=== PATIENT | male | born 1950 | race Caucasian/White ===

== ENCOUNTER 2025-02-07 08:54 | Outpatient (OUT) | payer OTHER, SELFPAY ==
--- OUTSIDE RECORDS SUMMARY | 2020-12-13 05:45 | XMS_ITS | Continuity of Care Document ---
Author Organization [facility] Address [address] [place] [address] Phone Care Team Providers Care Stable Cleaner Name Role Phone Hilario Morrison Unavailable Unavailable Procedures Procedure Date Moderna COVID Vaccine Admin Dose 2 Moderna COVID-19 Vaccine Moderna COVID Vaccine Admin Dose 1 Moderna COVID-19 Vaccine Advance Directives Directive Yes / No Effective Date File Name No Information Encounters Encounter Description Practice Location Reason(s) For Visit Diagnoses Date Provider Providers Copied on Encounter [facility], [address] [place], [place], [id number], [place] tel:[phone] COVID ECHD No Information Erin Thomas. [address] [place], [place], [id number], [place]. tel:[phone] [facility], [address] [place], [place], [id number], tel:[phone] COVID ECHD No Information Erin Thomas. [address] [place], [place], [id number], [place]. tel:[phone] Family History Family Member Type Diagnosis Age At Onset No Information Immunizations Vaccine Date Status Comments Moderna COVID administered Source: New Im munization Record Moderna COVID administered Source: New Im munization Record Payers Payer name Insurance type Covered green party ID Authoriza tion(s) Medicare PPS MB [id number] Medicare PPS [id number] [place] Medicare Advantage [id number] Social History Type Description Quantity Date Captured Comments Alcohol Use Details Unknown Caffeine Use Details Unknown Tobacco Use Status No Information Smoking Status No Information Sex Male Sexual Orientation Straight or heterosexual Gender Identity Male Chief Complaint And Reason For Visit No Information Reason For Referral Reason For Referral No Information History Of Present Illness Encounter Date Complaint History Of Prese nt Illness No Information Functional Status Date Functional Assessmen t No Information Instructions Date Instruction Additional Infor mation No Information Assessments Type Assessment Date No Information Patient Care Teams Name Effective Dates (start - stop) Status Members No Information
--- OUTSIDE RECORDS SUMMARY | 2025-02-07 08:57 | XMS_ITS | Clinical Summary ---
Author Organization [facility] Address [address] [place] [address] Care Team Providers Care Strategy Specialist Name Role Phone Kolton Patterson MD Primary Care Provider [phone] Allergies Active Allergy Reactions Criticality Noted Date Comments Cats Unknown 04/03/2020 Codeine Unknown 04/03/2020 Lactase Unknown 04/03/2020 Levonorgestrel-Ethinyl Estrad Unknown 2019 Medications potassium chloride (KLOR-CON 10 ORAL) Take 10 mEq by mouth once daily. 2 tablets Active propranolol (INDERAL) 40 mg tablet Take 40 mg by mouth twice daily. Active bumetanide (BUMEX) 2 mg tablet Take 2 mg by mouth once daily. Active escitalopram oxalate (LEXAPRO) 20 mg tablet Take 20 mg by mouth once daily. Active acetaminophen (TYLENOL) 325 mg tablet Take 650 mg by mouth every 6 hours as needed. Active DICLOFENAC SODIUM ORAL Take 75 mg by mouth twice daily. Active Active Problems Problem Noted Date Diagnosed Date Lumbar spinal stenosis 05/01/2020 Poor flexibility of tendon 04/29/2020 Chronic bilateral low back pain with bilateral s ciatica 04/29/2020 Social History Tobacco Use Types Packs/Day Years Used Date Smoking Tobacco: Never Smokeless Tobacco: Never Area Deprivation Index Answer Date Josue rded National Score (1-100), lower number is lower ri sk Not on file 08/22/2020 State Score (1-10), lower number is lower risk N ot on file 08/22/2020 Data from: https://www.neighborhoodatlas.medicine.[facility].edu/. Last address used for calculation Not on file 08/22/2020 Sex and Gender Information Value Date Recorded Sex Assigned at Not on file Legal Sex Male 12:20 PM EST Gender Identity Not on file Sexual Orientation Not on file Last Filed Vital Signs Vital Sign Reading Time Taken Comments Blood Pressure 116/56 05/01/2020 3:13 PM EDT Pulse 70 05/01/2020 3:13 PM EDT Temperature 36.5 C (97.7 F) 05/01/2020 2:15 PM EDT Respiratory Rate 16 05/01/2020 3:13 PM EDT Oxygen Saturation 95% 05/01/2020 3:13 PM EDT Inhaled Oxygen Concentration - - Weight 122.5 kg (270 lb) 05/01/2020 2:15 PM EDT Height - - Body Mass Index - - Plan of Treatment Health Maintenance Due Date Last Done Comments Anxiety Screening 1970 Depression Screening 1970 Hepatitis C Screening 1970 DTaP,Tdap,Td Vaccine (1 - Tdap) 12/17/1971 Lipid Screening 12/17/1987 CT Colonography 1997 Cologuard (FIT-DNA) 1997 Colonoscopy 1997 Colorectal Cancer Screening 1997 Diabetes Screening 1997 Fecal Occult Blood 1997 Sigmoidoscopy 1997 Pneumococcal Vaccine: 50+ (1 of 1 - PCV) 2002 Shingrix Vaccine (1 of 2) 2002 Covid-19 Vaccine (1 - 2023- season) 2024 Advance Directive Discussion 09/13/2024 Influenza Vaccine (Season Ended) 2025 RSV Vaccine (1 - 1-dose 75+ series) 12/17/2027 Insurance [employer] HMO Care Teams Strategy Specialist Relationship Specialty Start Date End Date Kolton Patterson MD PCP - General Internal Medicine 03/08/20
--- OUTSIDE RECORDS SUMMARY | 2025-02-07 08:57 | XMS_ITS | Clinical Summary ---
Author Organization [facility] Address [address] [facility] [place] [address] Care Team Providers Care Informatica Architect Name Role Phone Marco Freire MD Unavailable [phone] Marco Freire MD Primary Care Provider [phone] Elías Coleman DPM Unavailable Apollo Antonio MD Unavailable Carissa Sim MD Unavailable [phone] Allergies Active Allergy Reactions Criticality Noted Date Comments Cat Dander Low 10/26/2023 Other Reaction(s): Sneezing, eyes watering Codeine Rash,Other Low 04/03/2020 Levonorgestrel-Ethinyl Estrad Other Low 04/03/2020 Milk (Cow) GI intolerance Low 10/26/2023 Oxycodone Other Low 02/11/2023 Tilactase Other Low 04/03/2020 Medications fluocinolone (Synalar) 0.01 % external solution Apply 1 application topically Daily as needed for rash or irritation 023 Active cholecalciferol (Vitamin D-3) 125 MCG (5000 UT) capsule 1 capsule 1 (one) time each day at the same time. Active hydroCHLOROthiazide (Microzide) 12.5 MG capsule 1 (one) time each day at the same time. Active diphenhydrAMINE-acetami nophen (Tylenol PM) 25-500 MG per tablet Take 1 tablet by mouth as needed at bedtime for sleep. Active cyanocobalamin (Vitamin B-12) 500 MCG tablet Take 500 mcg by mouth in the morning. Active clotrimazole-betamethas one (Lotrisone) cream Apply 1 application topically Daily as needed Active triamcinolone (Kenalog) 0.1 % creamIndications:Rash and nonspecific skin eruption Apply 1 application topically 2 (two) times a day as needed for rash Avoid face and groin. 30 g 1 024 Active Krill Oil 1000 MG capsuleIndications:Pure hypercholesterolemia (CMS/HCC) Take 1,000 mg by mouth in the morning. 024 Active fluorouracil (Efudex) 5 % creamIndications:Actini c keratosis Apply to directed areas on the scalp twice a day x 14 days. Dispense 30 day supply but only use for 14 days. 40 g 024 Active diclofenac (Voltaren) 75 MG EC tabletIndications:Chron ic bilateral low back pain with bilateral sciatica,Primary osteoarthritis involving multiple joints Take 1 tablet (75 mg) by mouth in the morning and 1 tablet (75 mg) before bedtime. Do not crush, chew, or split. . 180 tablet 3 024 Active escitalopram (Lexapro) 20 MG tabletIndications:MUKUND (generalized anxiety disorder) (CMS/HCC) Take 1 tablet (20 mg) by mouth 1 (one) time each day at the same time 90 tablet 3 025 Active propranolol (Inderal) 60 MG tabletIndications:Essen tial tremor Take 1 tablet (60 mg) by mouth in the morning and 1 tablet (60 mg) before bedtime. 180 tablet 3 025 Active Active Problems Problem Noted Date Diagnosed Date Mixed hyperlipidemia 05/07/2024 BPH (benign prostatic hyperplasia) 10/11/2023 Microhematuria 10/11/2023 Macrocytosis 10/11/2023 Primary osteoarthritis involving multiple joints 10/11/2023 Psoriasis vulgaris 04/02/2023 Prediabetes 10/01/2021 Spinal stenosis in cervical region 03/09/2021 Morbid obesity 03/09/2021 MUKUND (generalized anxiety disorder) 03/05/2021 Essential tremor 03/05/2021 Vitamin D deficiency 03/04/2021 History of kidney stones 02/28/2021 FIDEL on CPAP 02/28/2021 Lumbar spinal stenosis 05/01/2020 Chronic bilateral low back pain with bilateral s ciatica 04/29/2020 Sensorineural hearing loss, bilateral 03/20/2019 History of basal cell cancer 07/09/2017 Resolved Problems Problem Noted Date Diagnosed Date Resolved Date SCC (squamous cell carcinoma), 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 10/11/2023 Encounters Date Type Department Care Team Description 01/26/2025 Orders Only [facility] [address] [place] [address] Unallocated, Noms MD Adwoa 12/05/2024 1:05 PM EDT Office Visit [facility] [address] [place] [address] Carissa Sim MD Other seborrheic dermatitis (Primary Dx); Lentigines; Seborrheic keratosis; Angioma of skin; History of basal cell carcinoma; Actinic keratosis; Seborrheic keratosis, inflamed 12/05/2024 Bamboo flowsheet [facility] [address] [place] [address] Carissa Sim MD 12/05/2024 Travel from Last 3 Months Immunizations Immunization Administration Dates Next Due Influenza, High Dose Seasonal, Preservative Free 09/29/2022,10/06/2021 Influenza, Seasonal, Quadrivalent, Adjuvanted Influenza, Unspecified 09/29/2022,10/06/2021 Influenza, trivalent, adjuvanted 10/30/2024 Pneumococcal Conjugate PCV 20 09/29/2022 RSV, recombinant, protein donohue bunit RSVpreF, adjuvant reconstitu, 120mcg/0.5mL, PF (Arexvy) 08/26/2023 Zoster, Recombinant 11/22/2023,08/26/2023 Family History Medical History Relation Name Comments Heart attack Father Viktor Pittman Heart disease Father Viktor Pittman age 4444 years old Dementia Mother age 10 1 years old Relation Name Status Comments Daughter Alive Father Viktor Pittman Mother Son Alive Social History Tobacco Use Types Packs/Day Years Used Date Smoking Tobacco: Never Passive Smoke Exposure: Never Smokeless Tobacco: Never Tobacco Cessation:Counseling Given: Not Answered Alcohol Use Standard Drinks/Week Comments Never 0 (1 standard drink = 0.6 oz pure alcohol) caffeine inyake: tea,on occation AUDIT-C Answer Date Recorded Q1: How often do you have a drink containing alcohol? Never 02/11/2023 Q2: How many drinks containi ng alcohol do you have on a typical day when you are drinking? Patient does not drink Q3: How often do you have si x or more drinks on one occasion? 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 Not on rodolfo e Last Filed Vital Signs Vital Sign Reading Time Taken Comments Blood Pressure 130/62 10/30/2024 10:38 AM EST Pulse 65 10/30/2024 10:38 AM EST Temperature - - Respiratory Rate - - Oxygen Saturation 95% 10/30/2024 10:38 AM EST Inhaled Oxygen Concentration - - Weight 127 kg (281 lb) 10/30/2024 10:38 AM EST Height 167.6 cm (5' 6 ) 10/30/2024 10:38 AM EST Body Mass Index 45.35 10/30/2024 10:38 AM EST Plan of Treatment Upcoming Encounters Date Type Department Care Team (Late st Contact Info) Description 02/12/2025 11:20 AM EDT Procedure Visit [facility] [address] [place] [address] Elías Coleman DPM [address] [facility] [address] [place] [address] 05/02/2025 10:45 AM EDT Office Visit [facility] [address] [place] [address] 06/07/2025 1:30 PM EDT Office Visit [facility] [address] [place] [address] Carissa Sim MD [address] [place] [address] Health Maintenance Due Date Last Done Comments CT Colonography 1952 FIT-DNA 1952 FIT 1952 FOBT 1950 Sigmoidoscopy 1950 Medicare Annual Wellness (AWV) 10/30/2025 0 10/30/2024, 09/29/2022, 09/29/2022 Colonoscopy 02/25/2031 02/25/2021, 02/26/2020 Colorectal Cancer Screening 02/25/2031 Pneumococcal Vaccine: 65+ Years Completed Influenza Vaccine Completed 10/30/2024, , 09/29/2022, Additional history exists Procedures Procedure Name Priority Date/Time Associated Diagnosis Comments XR ABDOMEN 1 VIEW Routine 01/25/2025 11: 32 AM EDT PSA, TOTAL Routine 01/25/2025 10:26 AM EDT CRYOTHERAPY SKIN LESION Routine 12/05/2024 1:19 PM EDT Seborrheic keratosis, inflamed CRYOTHERAPY SKIN LESION Routine 12/05/2024 1:17 PM EDT Actinic keratosis COLONOSCOPY Routine 02/25/2021 12:00 PM EDT from Last 3 Months or Most Recently Relevant to Health Maintenance Results * XR abdomen 1 view (01/25/2025 11:32 AM EDT) Anatomical Region Laterality Modality Abdomen Radiographic Nelda ging us Apollo Antonio MD IMG XR PROCEDURES Final Result * PSA (01/25/2025 10:26 AM EDT) Blood Venous blood specimen / Unknown us Noms Provider Unallocated LAB BLOOD ORDERABLE S Final Result * Cryotherapy, skin lesion (12/05/2024 1:19 PM EDT) Cairssa Sim MD DERM PROCEDURE ORDERABLES Fin al Result * Cryotherapy, skin lesion (12/05/2024 1:17 PM EDT) Carissa Sim MD DERM PROCEDURE ORDERABLES Fin al Result * Colonoscopy (02/25/2021 12:00 PM EDT) Anatomical Region Laterality Modality Endoscopy 02/25/2021 12:0 0 PM EDT Narrative 03/03/2021 12:00 PM EDT PERFORMED AT [facility] LOCATION:[id number] Rectal Polyp Removed Procedure Note CONVERSION, GENERIC - 01/27/2023 PERFORMED AT [facility] LOCATION:[id number] Rectal Polyp Removed Marco Freire MD ENDOSCOPY PROCEDURE ORDERABLES Final Result from Last 3 Months or Most Recently Relevant to Health Maintenance Insurance [employer] Care Teams Informatica Architect Relationship Specialty Start Date End Date Marco Freire MD [address] [place] [id number] PCP - [facility] 09/13/22 Marco Freire MD [address] [place] [address] PCP - General Internal Medicine 02/11/23 Elías Coleman DPM [address] [facility] [address] [place] [address] Referring Physician Podiatry 04/06/23 Apollo Antonio MD [address] [place] [address] Referring Physician Urology 10/12/23 Carissa iSm MD [address] [facility] [address] [place] [address] Referring Physician Dermatology 10/12/23 [facility] Ophthalmology 10/12/23
--- OUTSIDE RECORDS SUMMARY | 2025-02-07 08:57 | XMS_ITS | Clinical Summary ---
Author Organization [facility] Address [address] [place] [address] Phone Care Team Providers Care Foam Cutting Supervisor Name Role Phone Unavailable Primary Care Provider Unavailabl e Social History Tobacco Use Types Packs/Day Years Used Date Smoking Tobacco: Never Assessed Sex and Gender Information Value Date Recorded Sex Assigned at Not on file Legal Sex Male 1:55 PM EST Gender Identity Not on file Sexual Orientation Not on file Plan of Treatment Not on file
--- OUTSIDE RECORDS SUMMARY | 2025-02-07 08:57 | XMS_ITS | Encounter Summary ---
Author Organization [facility] Address [address] [place] [address] Care Team Providers Care Test Desk Supervisor Name Role Phone Marco Freire MD Unavailable [phone] Marco Freire MD Primary Care Provider Elías Coleman DPM Unavailable Apollo Antonio MD Unavailable Carissa Sim MD Unavailable [phone] Encounter Details Date Type Department Care Team (Late st Contact Info) Description 10/26/2023 Orders Only [facility] [address] [facility] [address] [place] [address] A, Unknown Practice [address] [place], [place] [address] Social History Tobacco Use Types Packs/Day Years Used Date Smoking Tobacco: Never Passive Smoke Exposure: Never Smokeless Tobacco: Never Alcohol Use Standard Drinks/Week Comments Never 0 [...] Date Recorded Patient Health Questionnaire-2 Score 1 10/12/2023 Sex and Gender Information Value Date Recorded Sex Assigned at Male 01/20/2024 3:41 PM EDT Legal Sex Male 6:54 PM EDT Gender Identity Male 01/20/2024 3:41 PM EDT Sexual Orientation Straight 01/20/2024 3: 41 PM EDT 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 Not on rodolfo e documented as of this encounter Plan of Treatment Upcoming Encounters Date Type Department Care Team (Late st Contact Info) Description 02/12/2025 11:20 AM EDT Procedure Visit [facility] [address] [place] [address] Elías Coleman DPM [address] [facility] 5 [place] [address] 05/02/2025 10:45 AM EDT Office Visit [facility] [address] [facility] [address] [place] [address] 06/07/2025 1:30 PM EDT Office Visit [facility] [address] [facility] [address] [place] [address] Carissa Sim MD [address] [facility] [address] [place] [address] documented as of this encounter Procedures Procedure Name Priority Date/Time Associated Diagnosis Comments TRANSTHORACIC ECHO (TTE) COMPLETE Routine 10/26/2023 2:19 PM EST documented in this encounter Results * Transthoracic echo (TTE) complete (10/26/2023 2:19 PM EST) Anatomical Region Laterality Modality Heart Ultrasound us Unknown Practice A CV ECHO PROCEDURES Final Resu lt documented in this encounter Visit Diagnoses Not on filedocumented in this encounter Care Teams Test Desk Supervisor Relationship Specialty Start Date End Date Marco Freire MD [address] [place] [address] PCP - [facility] 09/13/22 Marco Freire MD [address] [place] [phone] PCP - General Internal Medicine 02/11/23 Elías Coleman DPM [address] [facility] 5 [place] [address] Referring Physician Podiatry 04/06/23 Apollo Antonio MD [address] [place] [address] Referring Physician Urology 10/12/23 Carissa Sim MD [address] [place] [address] Referring Physician Dermatology 10/12/23 [facility] Ophthalmology 10/12/23 documented as of this encounter
--- OUTSIDE RECORDS SUMMARY | 2025-02-07 08:57 | XMS_ITS | Encounter Summary ---
Author Organization [facility] Address [address] [facility] [place] [address] Care Team Providers Care Hotel Front Office Manager Name Role Phone Marco Freire MD Unavailable [phone] Marco Freire MD Primary Care Provider Elías Coleman DPM Unavailable Apollo Antonio MD Unavailable Carissa Sim MD Unavailable Encounter Details Date Type Department Care Team (Late st Contact Info) Description 10/10/2024 Orders Only [facility] [address] [facility] [address] [place] [address] Apollo Antonio MD [address] [place] [address] Social History Tobacco Use Types Packs/Day Years [...] EDT Procedure Visit [facility] [address] [place] [address] Elías Coleman DPM [address] [facility] [place] [facility] [place] [address] [place] [address] 05/02/2025 10:45 AM EDT [facility] Visit [facility] [address] [facility] [address] [place] [address] 06/07/2025 1:30 PM EDT Office Visit [facility] [address] [facility] [address] [place] [address] Carissa Sim MD [address] [facility] [address] [place] [address] documented as of this encounter Procedures Procedure Name Priority Date/Time Associated Diagnosis Comments PSA, TOTAL Routine 06/13/2024 10:56 AM EDT documented in this encounter Results * PSA (06/13/2024 10:56 AM EDT) Blood Venous blood specimen / Unknown us Apollo Antonio MD LAB BLOOD ORDERABLES Final R esult documented in this encounter Visit Diagnoses Not on filedocumented in this encounter Care Teams Hotel Front Office Manager Relationship Specialty Start Date End Date Marco Freire MD [address] [place] [address] PCP - [facility]oted 09/13/22 Marco Freire MD [address] [place] [address] PCP - General Internal Medicine 02/11/23 Elías Coleman DPM [address] [facility] [place] [address] [place] [address] Referring Physician Podiatry 04/06/23 Apollo Antonio MD [address] [facility] [place] [address] Referring Physician Urology 10/12/23 Carissa Sim MD [address] [place] [address] Referring Physician Dermatology 10/12/23 [facility] Ophthalmology 10/12/23 documented as of this encounter
--- OUTSIDE RECORDS SUMMARY | 2025-02-07 08:57 | XMS_ITS | Encounter Summary ---
Author Organization [facility] Address [address] [facility] [place] [address] Care Team Providers Care Rear Load Truck Driver Name Role Phone Marco Freire MD Unavailable [phone] Marco Freire MD Primary Care Provider [phone] Elías Coleman DPM Unavailable Apollo Antonio MD Unavailable Carissa Sim MD Unavailable [phone] Encounter Details Date Type Department Care Team (Late st Contact Info) Description 10/27/2023 External Result Encounter [facility] External Department Unsolicited Cele Peace, CATE [address] [facility] [address] [place] [address] Social History Tobacco Use Types Packs/Day Years [...] you are drinking? Patient does not drink 3 Q3: How often do you have si [...] rodolfo e documented as of this encounter Miscellaneous Notes * Result Encounter Note - GENO Eastman - 10/27/2023 11:59 PM EST Please notify that stress test was normal. Let us know if shortness of breath worsening or chest pain occurring. * Result Encounter Note - Marco Freire MD - 10/27/2023 11:59 PM EST Please call and tell him the ECHO and stress test were normal. Let us know if problem is worsening or persisting. documented in this encounter Plan of Treatment Upcoming Encounters Date Type Department Care Team (Late st Contact Info) Description 02/12/2025 11:20 AM EDT Procedure Visit [facility] POD [address] [place] [address] Elías Coleman DPM [address] [facility] [address] [place] [address] 05/02/2025 10:45 AM EDT Office Visit [facility] IM [address] [place] [address] 06/07/2025 1:30 PM EDT Office Visit [facility] DERM [address] [place] [phone] Carissa Sim MD [address] [place] [address] documented as of this encounter Procedures Procedure Name Priority Date/Time Associated Diagnosis Comments STRESS TEST WITH MYOCARDIAL PERFUSION 10/27/2023 3:46 PM EST documented in this encounter Results * Stress test with myocardial perfusion (10/27/2023 3:46 PM EST) Anatomical Region Laterality Modality Heart Other 10/27/2023 3:46 PM EST Impressions 10/27/2023 3:50 PM EST 1. Gated spect Sestamibi study is within normal limits. 2. Left ventricular function was preserved. Impression dictated by: Rashmi Peñaloza M.D.10/27/2023 3:48 PM Dictation Location: [place] [address] Transcribed By: [facility] 10/27/23 1548 Dictated By: Rashmi Peñaloza MD 10/27/23 1546 Signed By: <Electronically signed by Rashmi Peñaloza MD in OV> 10/27/23 1548 Narrative 10/27/2023 3:50 PM EST [facility] Main [address] [address] Nuclear Medicine Report Signed Patient: Marco Pittman MR#: [id number] : 1950 Acct:[id number] Age/Sex: 72 / M ADM Date: 10/26/23 Loc: Room: Type: [facility] Attending Dr: Cele Peace LAP GRINDER-C Copies to: CATE Alexandre MD Ordering Provider: Cele Peace NP Date of Service: 10/26/23 NM/NM lenny perf SPECT rest str: Shortness of breath NUCLEAR MYOCARDIAL PERFUSION DATE OF PROCEDURE: 10/27/2023 PROCEDURE: The patient received a stress dose of Lexiscan and was then injected with 27.1 millicuries of Technetium 99M Sestamibi. For rest images the patient was injected with 27.6 millicuries of Technetium 99M Sestamibi. FINDINGS: The raw cine images were reviewed. The post stress and rest perfusion images were reviewed as well as the computer quantification. There was uniform uptake of the radiotracer with no perfusion defects identified. On the gated portion of the study, there was uniform thickening with an overall ejection fraction calculated at 63%. TID score was within normal limits (1.04). NM/NM lenny perf SPECT rest str Procedure Note Rashmi Peñaloza MD - 10/28/2023 [facility] Main [place] [address] [place] [address] Nuclear Medicine Report Signed Patient: Marco Pittman GMR#: [id number] : 3Acct:[id number] Age/Sex: 72 / MADM Date: 10/26/23 Loc: Room:Type: [facility] Attending Dr: Cele Peace LAP GRINDER-C Copies to: CATE Alexandre MD Ordering Provider: Cele Peace NP Date of Service: 10/26/23 NM/NM lenny perf SPECT rest str: Shortness ofbreath NUCLEAR MYOCARDIAL PERFUSION DATE OF PROCEDURE: 10/27/2023 PROCEDURE: The patient received a stress dose of Lexiscan and was then injected with27.1 millicuries of Technetium 99M Sestamibi. For rest images the patient was injected with 27.6 millicuries ofTechnetium 99M Sestamibi. FINDINGS: The raw cine images were reviewed. The post stress and rest perfusionimages were reviewed as well as the computer quantification. There was uniform uptake of theradiotracer with no perfusion defects identified. On the gated portion of the study, there was uniform thickening with anoverall ejection fraction calculated at 63%. TID score was within normal limits (1.04). NM/NM lenny perf SPECT rest str IMPRESSION: 1. Gated spect Sestamibi study is within normal limits. 2. Left ventricular function was preserved. Impression dictated by: Rashmi Peñaloza M.D.10/27/2023 3:48 PM Dictation Location: [id number] Transcribed By: [facility] 10/27/23 1548 Dictated By: Rashmi Peñaloza MD 10/27/23 1546 Signed By: <Electronically signed by Rashmi Peñaloza MD in OV> 10/27/23 1548 us Cele Peace LAP GRINDER CV STRESS PROCEDURES Final Re sult documented in this encounter Visit Diagnoses Not on filedocumented in this encounter Care Teams Rear Load Truck Driver Relationship Specialty Start Date End Date Marco Freire MD [address] [place] [address] PCP - Devoted 09/13/22 Marco Freire MD [address] [place] [address] PCP - General Internal Medicine 02/11/23 Elías Coleman DPM [address] [facility] [place] [address] Referring Physician Podiatry 04/06/23 Apollo Antonio MD [address] [facility] [place] [address] Referring Physician Urology 10/12/23 Carissa Sim MD [address] [place] [address] Referring Physician Dermatology 10/12/23 [facility] Ophthalmology 10/12/23 documented as of this encounter
--- OUTSIDE RECORDS SUMMARY | 2025-02-07 08:57 | XMS_ITS | Encounter Summary ---
Author Organization [facility] Address [address] [facility] [place] [address] Care Team Providers Care Warranty Manager Name Role Phone Marco Freire MD Unavailable [phone] Marco Freire MD Primary Care Provider Elías Coleman DPM Unavailable Apollo Antonio MD Unavailable Carissa Sim MD Unavailable [phone] Encounter Details Date Type Department Care Team (Late st Contact Info) Description 01/26/2025 Orders Only [facility] IM [address] [facility] [address] [place] [address] Unallocated, Noms Provider, [address] [place], [place] [phone] Social History Tobacco Use Types Packs/Day Years [...] Upcoming Encounters Date Type Department Care Team ([facility] st Contact Info) Description 02/12/2025 11:20 AM EDT Procedure Visit [facility] P[facility] [address] [place] [address] Elías Coleman DPM [address] [facility] [address] [place] [address] 05/02/2025 10:45 AM EDT Office Visit [facility] [address] [facility] [address] [place] [address] 06/07/2025 1:30 PM EDT Office Visit [facility] DERM [address] [facility] [address] [place] [address] Carissa Sim MD [address] [facility] [address] [place] [address] documented as of this encounter Procedures Procedure Name Priority Date/Time Associated Diagnosis Comments XR ABDOMEN 1 VIEW Routine 01/25/2025 11:32 AM EDT PSA, TOTAL Routine 01/25/2025 10:26 AM EDT documented in this encounter Results * XR abdomen 1 view (01/25/2025 11:32 AM EDT) Anatomical Region Laterality Modality Abdomen Radiographic Nelda ging us Apollo Antonio MD IMG XR PROCEDURES Final Result * PSA (01/25/2025 10:26 AM EDT) Blood Venous blood specimen / Unknown us Noms Provider Unallocated LAB BLOOD ORDERABLE S Final Result documented in this encounter Visit Diagnoses Not on filedocumented in this encounter Care Teams Warranty Manager Relationship Specialty Start Date End Date Marco Freire MD [address] [place] [address] PCP - Devoted 09/13/22 Marco Freire MD [address] [place] [address] PCP - General Internal Medicine 02/11/23 Elías Coleman DPM [address] [facility] [address] [place] [address] Referring Physician Podiatry 04/06/23 Apollo Antonio MD [address] [facility] [place] [address] Referring Physician Urology 10/12/23 Carissa Sim MD [address] [place] [address] Referring Physician Dermatology 10/12/23 [facility] Ophthalmology 10/12/23 documented as of this encounter
--- OUTSIDE RECORDS SUMMARY | 2025-02-07 08:57 | XMS_ITS | Encounter Summary ---
Author Organization [facility] Address [address] [facility] [place] [address] Care Team Providers Care Domestic Violence Advocate Name Role Phone Marco Freire MD Unavailable [phone] Marco Freire MD Primary Care Provider Elías Coleman DPM Unavailable Apollo Antonio MD Unavailable [phone] Carissa Sim MD Unavailable Encounter Details Date Type Department Care Team (Late st Contact Info) Description 10/09/2024 Orders Only [facility] IM [address] [facility] [address] [place] [address] Unallocated, Noms Provider, [address] [place], [place] [phone] Social History Tobacco Use Types Packs/Day Years [...] EDT Procedure Visit [facility] POD [address] [place] [address] Elías Coleman DPM [address] [facility] [address] [place] [address] 05/02/2025 10:45 AM EDT Office Visit [facility] IM [address] [facility] [address] [place] [address] 06/07/2025 1:30 PM EDT Office Visit [facility] DERM [address] [facility] [address] [place] [address] Carissa Sim MD [address] [facility] [address] [place] [address] documented as of this encounter Procedures Procedure Name Priority Date/Time Associated Diagnosis Comments DIABETIC RETINOPATHY SCREENING - OU - BOTH EYES Routine 04/24/2024 3:34 PM EDT documented in this encounter Results * Diabetic Retinopathy Screening - OU - Both Eyes (04/24/2024 3:34 PM EDT) Anatomical Region Laterality Modality Head Other us Noms Provider Unallocated MD OPHTH PHOTOGRAPHY F inal Result documented in this encounter Visit Diagnoses Not on filedocumented in this encounter Care Teams Domestic Violence Advocate Relationship Specialty Start Date End Date Marco Freire MD [address] [place] [address] PCP - Devoted 09/13/22 Marco Freire MD [address] [place] [address] PCP - General Internal Medicine 02/11/23 Elías Coleman DPM [address] [facility] [address] [place] [address] Referring Physician Podiatry 04/06/23 Apolol Antonio MD [address] [place] [address] Referring Physician Urology 10/12/23 Carissa Sim MD [address] [place] [address] Referring Physician Dermatology 10/12/23 [facility] Ophthalmology 10/12/23 documented as of this encounter
--- NOTE | 2025-02-07 08:58 | ECG_ITS ---
[facility] Test Date: 2025-02-07 Pat Name: ZAID LUZ Department: Room: - Gender: Male Music Writer: : 1950 Requested By: PEPPER NEWMAN Order Number: [id number] Reading MD: JANICE KIRKLAND M.D. Measurements Intervals [place] Rate: 64 P: 52 LA: 238 QRS: 22 QRSD: 90 T: 35 QT: 402 QTc: 415 Interpretive Statements SINUS RHYTHM WITH FIRST DEGREE AV BLOCK Compared to ECG 05/11/2022 08:41:20 No significant changes Electronically Signed On 02-07-2025 18:04:21 EDT by JANICE KIRKLAND M.D.
--- NOTE | 2025-02-07 09:52 | PM.PRESUREVA ---
History of Present Illness History of Present Illness Chief complaint: Right Kidney Stone Narrative: Patient presents for presurgical testing. Please see HPI from Dr. Antonio dated January 31, 2025. Review of Systems ROS Narrative Please see ROS from Dr. Antonio dated January 31, 2025. Please note patient admits to dyspnea on exertion. [facility] Medical History (Updated 02/07/25 @ 09:51 by Tete Talbert NP) Lumbar spinal stenosis ?M48.061 - Spinal stenosis, lumbar region without neurogenic claudication (ICD-10) Lumbar radiculopathy ?M54.16 - Radiculopathy, lumbar region (ICD-10) Chronic back pain ?M54.9 - Dorsalgia, unspecified (ICD-10) ?G89.29 - Other chronic pain (ICD-10) Cervical spondylosis with myelopathy ?M47.12 - Other spondylosis with myelopathy, cervical region (ICD-10) Anxiety ?F41.9 - Anxiety disorder, unspecified (ICD-10) Neck pain ?M54.2 - Cervicalgia (ICD-10) DDD (degenerative disc disease) Back pain ?M54.9 - Dorsalgia, unspecified (ICD-10) Arthritis ?M19.90 - Unspecified osteoarthritis, unspecified site (ICD-10) Sleep apnea ?G47.30 - Sleep apnea, unspecified (ICD-10) Tremor ?R25.1 - Tremor, unspecified (ICD-10) Kidney stones ?N20.0 - Calculus of kidney (ICD-10) Dyspnea on exertion ?R06.09 - Other forms of dyspnea (ICD-10) S/P extracorporeal shock wave therapy ?Z98.890 - Other specified postprocedural states (ICD-10) Surgical History (Updated 02/07/25 @ 09:35 by Tete Talbert NP) S/P epidural steroid injection ?Z92.241 - Personal history of systemic steroid therapy (ICD-10) History of tonsillectomy ?Z90.89 - Acquired absence of other organs (ICD-10) History of colonoscopy ?Z98.890 - Other specified postprocedural states (ICD-10) S/P ureteral stent placement ?Z96.0 - Presence of urogenital implants (ICD-10) S/P cystoscopy ?Z98.890 - Other specified postprocedural states (ICD-10) History of total hip arthroplasty ?Z96.649 - Presence of unspecified artificial hip joint (ICD-10) Social History (Updated 02/07/25 @ 09:26 by Tete Talbert NP) Within the past year, how often did you have a drink containing alcohol: never Score interpretation: A score less than 4 is consistent with normal alcohol consumption. Smoking status: Never smoker Non-prescribed substance use: denies use Highest level of school completed/degree received: Bachelor's degree Meds Home Medications and Allergies Home Medications ?Medication ?Instructions ?Recorded ?Confirmed ?Type cholecalciferol (vitamin D3) 50 6,000 unit PO DAILY 02/07/25 02/07/25 History mcg (2,000 unit) capsule diclofenac sodium 75 mg 75 mg PO Q12H 02/07/25 02/07/25 History tablet,delayed release escitalopram oxalate 20 mg tablet 20 mg PO DAILY 02/07/25 02/07/25 History hydrochlorothiazide 12.5 mg capsule 12.5 mg PO DAILY 02/07/25 02/07/25 History omega 8-uik-nhs-fish oil 300 1 cap PO DAILY 02/07/25 02/07/25 History mg-1,000 mg capsule (Fish Oil) pregabalin 25 mg capsule (Lyrica) 25 mg PO DAILY PRN back pain 02/07/25 02/07/25 History propranolol 60 mg tablet 60 mg PO Q12H tremor 02/07/25 02/07/25 History tizanidine 4 mg capsule 4 mg PO BID PRN muscle spasticity 02/07/25 02/07/25 History vitamin B complex 1 tab PO DAILY 02/07/25 02/07/25 History Allergies Allergy/AdvReac Type Severity Reaction Status Date / Time cat dander Allergy Unknown Verified 02/07/25 09:22 codeine Allergy Dizziness Verified 02/07/25 09:22 Milk Containing Products Allergy Unknown Verified 02/07/25 09:22 (Dairy) Exam Narrative Exam Narrative: Constitutional: Awake, alert, comfortable, well-appearing, nontoxic, interactive, vital signs as charted Head: Normocephalic, atraumatic Neck: Supple, normal appearance, normal range of motion, no meningeal signs, no lymphadenopathy Respiratory: No respiratory distress, breath sounds clear Cardiovascular: Regular rate and rhythm, strong and regular heart tones Abdomen: Nontender, normal bowel sounds, soft, no CVA tenderness Musculoskeletal: Ambulates with an antalgic gait using a cane, no swelling or edema Skin: No rashes or induration, no lesions, only visible skin inspected Neuro: Mild right upper extremity tremor noted, normal sensation Psychiatric: Oriented ?3, normal affect Assessment and Plan Assessment and Plan (1) Kidney stones: Plan Cystoscopy, right retrograde, right ureteroscopy, holmium laser, possible right stent placement scheduled with Dr. Antonio February 15, 2025.
[2025-02-07 10:03] LABS: Basophils Absolute Auto 0.1 10^3/uL (0.0-0.1); Eosinophils Absolute Auto 0.2 10^3/uL (0.0-0.7); Eosinophils Percent Auto 3.2 % (0.9-7.0); Hematocrit 41.3 % (42.0-54.0); Hemoglobin 14.3 g/dL (14.0-18.0); Immature Granulocytes Abs Auto 0.02 10^3/uL (0.00-0.03); Immature Granulocytes Pct Auto 0.3 % (0.0-0.5); Lymphocytes Absolute Auto 1.2 10^3/uL (1.2-3.8); Lymphocytes Percent Auto 17.8 % (20.5-60.0); Mean Corpuscular HGB Conc 34.6 g/dL (29.9-35.2); Mean Corpuscular Hemoglobin 32.4 pg (25.9-34.0); Mean Corpuscular Volume 93.7 fL (80.0-94.0); Mean Platelet Volume 9.5 fL (9.5-13.5); Monocytes Absolute Auto 0.5 10^3/uL (0.3-0.8); Monocytes Percent Auto 7.6 % (1.7-12.0); Neutrophils Absolute Auto 4.9 10^3/uL (1.4-6.5); Neutrophils Percent Auto 70.1 % (43.0-75.0); Platelet Count 181 10^3/uL (150-450); Red Blood Count 4.41 10^6/uL (4.70-6.10); Red Cell Distribution Width 12.3 % (11.0-15.0)
[2025-02-07 10:15] LABS: Partial Thromboplastin Time 27.9 sec (22.3-36.2)
[2025-02-07 10:17] LABS: Anion Gap 12.2; BUN Creatinine Ratio 22.2; Carbon Dioxide 27.8 mmol/L (21.0-32.0); Chloride 104 mmol/L (98-107); Estimated GFR (African America >60 (>=60 mL/min/1.73m^2); Estimated GFR (Non-African Ame >60 (>=60 mL/min/1.73m^2); Glucose 116 mg/dL (74-106); INR 1.09; Prothrombin Time 11.5 sec (9.0-11.6); Sodium 140 mmol/L (136-145)
== END 2025-02-07 08:55 | disposition home or self-care (01) ==
LOC: PST 08:54
PROVIDERS: Family Provider Internal Medicine; PCP Internal Medicine; Visit Provider Urology
DX: Z01.810 Encounter for preprocedural cardiovascular examination (principal); Z01.812 Encounter for preprocedural laboratory examination; Z01.818 Encounter for other preprocedural examination; N20.0 Calculus of kidney
CPT/HCPCS: 80048; 85025; 85610; 85730; 93005; G0463

== ENCOUNTER 2025-02-15 07:37 | Day surgery (SDC) | payer OTHER, SELFPAY ==
--- OUTSIDE RECORDS SUMMARY | 2020-12-13 05:45 | XMS_ITS | Continuity of Care Document ---
Author Organization [facility] Address [address] [place] [address] Phone Care Team Providers Care Volunteer Services Director Name Role Phone Hilario Morrison Unavailable Unavailable Procedures Procedure Date Moderna COVID Vaccine Admin Dose 2 Moderna COVID-19 Vaccine Moderna COVID Vaccine Admin Dose 1 Moderna COVID-19 Vaccine Advance Directives Directive Yes / No Effective Date File Name No Information Encounters Encounter Description Practice Location Reason(s) For Visit Diagnoses Date Provider Providers Copied on Encounter [facility], [address], [place], [id number], [place] tel:[phone] COVID ECHD No Information Erin Thomas. [address], [place], [id number], [place]. tel:[phone] [facility], [address], [place], [id number], tel:[phone] COVID ECHD No Information Erin Thomas. [address], [place], [id number], [place]. tel:[phone] Family History Family Member Type Diagnosis Age At Onset No Information Immunizations Vaccine Date Status Comments Moderna COVID administered Source: New Im munization Record Moderna COVID administered Source: New Im munization Record Payers Payer name Insurance type Covered libertarian ID Authoriza tion(s) Medicare PPS MB [id number] Medicare PPS [id number] [place] Medicare Advantage [id number] Social History Type Description Quantity Date Captured [...]
[2025-02-07 09:46] VITALS: BP 117/72; PULSE 74; TEMP 36.3; O2SAT 98; BMI 46.3
--- OUTSIDE RECORDS SUMMARY | 2025-02-12 11:20 | XMS_ITS | Encounter Summary ---
Author Organization [facility] Address [address] [facility] [place] [address] Care Team Providers Care Piping Manager Name Role Phone Marco Freire MD Unavailable [phone] Marco Freire MD Primary Care Provider Elías Coleman DPM Unavailable Apollo Antonio MD Unavailable [phone] Carissa Sim MD Unavailable [phone] Reason for Visit * Reason Comments Toenail Care Non dm nail care Encounter Details Date Type Department Care Team (Latest Contact Info) Description 02/12/2025 11:20 AM EDT Procedure Visit [facility] P[facility] [address] [place] [address] Elías Cloeman DPM [address] [address] Pain due to onychomycosis of toenails of both feet (Primary Dx) Social History Tobacco Use Types Packs/Day Years Used Date Smoking Tobacco: Never Passive Smoke Exposure: Never Smokeless Tobacco: Never Tobacco Cessation:Counseling Given: Yes Alcohol Use Standard Drinks/Week Comments Never 0 [...] rodolfo e documented as of this encounter Last Filed Vital Signs Vital Sign Reading Time Taken Comments Blood Pressure - - Pulse - - Temperature - - Respiratory Rate 18 02/12/2025 11:17 AM EDT Oxygen Saturation - - Inhaled Oxygen Concentration - - Weight 127 kg (281 lb) 02/12/2025 11:17 AM EDT Height 167.6 cm (5' 6 ) 02/12/2025 11:17 AM EDT Body Mass Index 45.35 02/12/2025 11:17 AM EDT documented in this encounter Progress Notes * Elías Coleman DPM - 02/12/2025 11:20 AM EDT Patient: Marco Pittman : 1950 PCP: Marco Freire MD SUBJECTIVE This is a 74 y.o. male that presents today with a CC of elongated, thick nails. Pt states nails have been elongated and thick for many years and cause pain with ambulation in shoegear. Pt has tried previous treatment with minimal relief. Pt presents today for nail care and treatment. Patient has hx of tinea pedis in the past. Allergies: Allergies Allergen Reactions Cat Dander Other Reaction(s): Sneezing, eyes watering Codeine Rash and Other Levonorgestrel-Ethinyl Estrad Other Milk (Cow) GI intolerance Oxycodone Other Tilactase Other Past Medical History: Past Medical History: Diagnosis Date Actinic keratosis Arthritis Basal cell carcinoma Benign skin lesion of multiple sites Broken nose Essential tremor MUKUND (generalized anxiety disorder) (CMS/HCC) History of basal cell carcinoma (BCC) History of kidney stones Kidney stones Lumbar spinal stenosis Morbid obesity (CMS/HCC) OM (onychomycosis) FIDEL on CPAP Prediabetes 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), 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 Sensorineural hearing loss, bilateral Squamous cell skin cancer Stenosis of cervical spine Tinea Tremor Visual impairment with corrective lenses Vitamin D deficiency Medications: Current Outpatient Medications: cholecalciferol (Vitamin D-3) 125 MCG (5000 UT) capsule, 1 capsule 1 (one) time each day at the same time., Disp: , Rfl: clotrimazole-betamethasone (Lotrisone) cream, Apply 1 application topically Daily as needed, Disp: , Rfl: cyanocobalamin (Vitamin B-12) 500 MCG tablet, Take 500 mcg by mouth in the morning., Disp: , Rfl: diclofenac (Voltaren) 75 MG EC tablet, Take 1 tablet (75 mg) by mouth in the morning and 1 tablet (75 mg) before bedtime. Do not crush, chew, or split. ., Disp: 180 tablet, Rfl: 3 diphenhydrAMINE-acetaminophen (Tylenol PM) 25-500 MG per tablet, Take 1 tablet by mouth as needed at bedtime for sleep., Disp: , Rfl: escitalopram (Lexapro) 20 MG tablet, Take 1 tablet (20 mg) by mouth 1 (one) time each day at the same time, Disp: 90 tablet, Rfl: 3 fluocinolone (Synalar) 0.01 % external solution, Apply 1 application topically Daily as needed for rash or irritation, Disp: , Rfl: fluorouracil (Efudex) 5 % cream, Apply to directed areas on the scalp twice a day x 14 days. Dispense 30 day supply but only use for 14 days., Disp: 40 g, Rfl: 0 hydroCHLOROthiazide (Microzide) 12.5 MG capsule, 1 (one) time each day at the same time., Disp: , Rfl: Krill Oil 1000 MG capsule, Take 1,000 mg by mouth in the morning., Disp: , Rfl: propranolol (Inderal) 60 MG tablet, Take 1 tablet (60 mg) by mouth in the morning and 1 tablet (60 mg) before bedtime., Disp: 180 tablet, Rfl: 3 triamcinolone (Kenalog) 0.1 % cream, Apply 1 application topically 2 (two) times a day as needed for rash Avoid face and groin., Disp: 30 g, Rfl: 1 Social History: Social History Socioeconomic History Marital status: Spouse name: Samantha Number of children: 3 Years of education: Not on file Highest education level: Not on file Occupational History 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 Tobacco Use Smoking status: Never Passive exposure: Never Smokeless tobacco: Never Vaping Use Vaping status: Unknown Substance and Sexual Activity Alcohol use: Never Comment: caffeine inyake: tea,on occation Drug use: Never Sexual activity: Not Currently Partners: Female, Decline to Answer control/protection: Abstinence Other Topics Concern Not on file Social History Narrative Not on file Social Drivers of Health Financial Resource Strain: Not on file Food Insecurity: Not on file Transportation Needs: Not on file Physical Activity: Not on file Stress: Not on file Social Connections: Not on file Intimate Partner Violence: Not on file Housing Stability: Not on file ROS: General: denies fever, chills, fatigue, malaise OBJECTIVE LE EXAM: DERM: Elongated thick yellow crumbly nails digits 1 through 10. Positive hair growth b/l feet. Negative peeling skin noted into the right hallux with negative dry peeling skin and skin to the right 4th interdigital space VASC: Positive palpable pedal pulses bilaterally NEURO: Gross sensation intact to bilateral feet ORTHO: Positive pain on palpation to nails 1 through 10 ASSESSMENT 1. Pain due to onychomycosis of toenails of both feet PLAN Discussed proper foot care with patient today. Debride nails in length and thickness digits 1 through 10 Patient encouraged to use powders to his feet daily. Elías Coleman DPM documented in this encounter Plan of Treatment Upcoming Encounters Date Type Department Care Team (Late st Contact Info) Description 05/02/2025 10:45 AM EDT Office Visit [facility] [address] [place] [address] 06/07/2025 1:30 PM EDT Office Visit [facility] DERM [address] [facility] [address] [place] [address] Carissa Sim MD [address] [facility] [address] [place] [address] documented as of this encounter Visit Diagnoses Diagnosis Pain due to onychomycosis of toenails of both feet- Primary documented in this encounter Care Teams Piping Manager Relationship Specialty Start Date End Date Marco Freire MD [address] [facility] [address] [place] [address] PCP - Devoted 09/13/22 Marco Freire MD [address] [place] [address] PCP - General Internal Medicine 02/11/23 Elías Coleman DPM [address] [facility] [address] [place] [address] Referring Physician Podiatry 04/06/23 Apollo Antonio MD [address] [place] [address] Referring Physician Urology 10/12/23 Carissa Sim MD [address] [facility] [address] [place] [address] Referring Physician Dermatology 10/12/23 [facility] Ophthalmology 10/12/23 documented as of this encounter
[2025-02-15] VITALS (13 sets, daily range): BP systolic 129–151; BP diastolic 59–79; PULSE 63–72; TEMP 36.3–36.6; O2SAT 84–96; BMI 44.9
--- OUTSIDE RECORDS SUMMARY | 2025-02-15 07:39 | XMS_ITS | Clinical Summary ---
Author Organization [facility] Address [address] [facility] [place] [address] Care Team Providers Care Siding Mechanic Name Role Phone Zaid Freire MD Unavailable [phone] Zaid Freire MD Primary Care Provider Elías Coleman DPM Unavailable [phone] Apollo Newman MD Unavailable [phone] Carissa Sim MD Unavailable [phone] Allergies Active Allergy Reactions Criticality Noted [...] Encounters Date Type Department Care Team Description 02/12/2025 11:20 AM EDT Procedure Visit [facility] [address] [place] [address] Elías Coleman, DPMarcelino Pain due to onychomycosis of toenails of both feet (Primary Dx) 02/12/2025 Bamboo flowsheet [facility] [address] [place] [address] Elías Coleman DPM 02/07/2025 Clinisync Result Encounter [facility]OM[facility] External Department Unsolicited Provider, Generic External Data 02/07/2025 Clinisync Result Encounter [facility] External Department Unsolicited Provider, Generic External Data 01/26/2025 Orders Only [facility] [address] [place] [phone] Unallocated, Noms MD Adwoa 12/05/2024 1:05 PM EDT Office Visit [facility] DERM [address] [place] [address] Carissa Sim MD Other seborrheic dermatitis (Primary Dx); Lentigines; Seborrheic keratosis; Angioma of skin; History of basal cell carcinoma; Actinic keratosis; Seborrheic keratosis, inflamed 12/05/2024 Bamboo flowsheet [facility] [address] [place] [address] Carissa Sim MD 12/05/2024 Travel from Last 3 Months Immunizations Immunization Administration Dates Next Due Influenza, High Dose Seasonal, Preservative Free 09/29/2022,10/06/2021 Influenza, Seasonal, Quadrivalent, Adjuvanted Influenza, Unspecified 09/29/2022,10/06/2021 Influenza, trivalent, adjuvanted 10/30/2024 Pneumococcal Conjugate PCV 20 09/29/2022 RSV, recombinant, protein donohue bunit RSVpreF, adjuvant reconstitu, 120mcg/0.5mL, PF (Arexvy) 08/26/2023 Zoster, Recombinant 11/22/2023,08/26/2023 Family History Medical History Relation Name Comments Heart attack Father Janice Pittman Heart disease Father Janice Pittman age 4444 years old Dementia Mother age 10 1 years old Relation Name Status Comments Daughter Alive Father Janice Pittman Mother Son Alive Social History Tobacco [...] AM EST Temperature - - Respiratory Rate 18 02/12/2025 11:17 AM EDT Oxygen Saturation 95% 10/30/2024 10:38 AM EST Inhaled Oxygen Concentration - - Weight 127 kg (281 lb) 02/12/2025 11:17 AM EDT Height 167.6 cm (5' 6 ) 02/12/2025 11:17 AM EDT Body Mass Index 45.35 02/12/2025 11:17 AM EDT Plan of Treatment Upcoming Encounters Date Type Department Care Team (Late st Contact Info) Description 05/02/2025 10:45 AM EDT Office Visit [facility] [address] [place] [address] 06/07/2025 1:30 PM EDT Office Visit [facility] [address] [place] [address] Carissa Sim MD [address] [place] [address] Health Maintenance Due Date Last Done Comments CT Colonography 1950 FIT-DNA 1950 FIT 1950 FOBT 1950 Sigmoidoscopy 1950 Medicare Annual Wellness (AWV) 10/30/2025 0 10/30/2024, 09/29/2022, 09/29/2022 Colonoscopy 02/25/2031 02/25/2021, 02/26/2020 Colorectal Cancer Screening 02/25/2031 Pneumococcal Vaccine: 65+ Years Completed Influenza Vaccine Completed 10/30/2024, , 09/29/2022, Additional history exists Procedures Procedure Name Priority Date/Time Associated Diagnosis Comments ALL BASIC METABOLIC PANEL Routine 02/07/2025 9:50 AM EDT [facility] PROTHROMBIN TIME INR W/O COUM Routine 02/07/2025 9:50 AM EDT [facility] APTT Routine 02/07/2025 9:50 AM EDT ALL CBC WITH AUTO DIFF Routine 02/07/2025 9:50 AM EDT ECG 12-LEAD 02/07/2025 9:47 AM EDT XR ABDOMEN 1 VIEW Routine 01/25/2025 11: 32 AM EDT PSA, TOTAL Routine 01/25/2025 10:26 AM EDT CRYOTHERAPY SKIN LESION Routine 12/05/2024 1:19 PM EDT Seborrheic keratosis, inflamed CRYOTHERAPY SKIN LESION Routine 12/05/2024 1:17 PM EDT Actinic keratosis COLONOSCOPY Routine 02/25/2021 12:00 PM EDT from Last 3 Months or Most Recently Relevant to Health Maintenance Results * [facility] PROTHROMBIN TIME INR W/O COUM (02/07/2025 9:50 AM EDT) PROTHROMBIN TIME 11.5 9.0 - 11.6 sec TBH TB INR 1.09 TBH Comment: DESIRED INR: 2.0-3.0 CONDITIONS NOT LISTED BELOW 2.5-3.5 FOR PROSTHETIC HEART VALVE REPLACEMENT 2.5-3.5 RECURRENT THROMBOSIS 02/07/2025 9:50 AM EDT 02/07/2025 9:56 AM EDT Narrative [facility]IN[facility] - 02/07/2025 10:17 AM EDT us Generic External Data Provider CLIN[facility]NC F inal Result Performing Organization Address [facility] de Phone Number [facility] * [facility] APTT (02/07/2025 9:50 AM EDT) PARTIAL THROMBOPLASTIN TIME 27.9 22.3 - 36.2 sec TB 02/07/2025 9:50 AM EDT 02/07/2025 9:56 AM EDT Narrative CLINIS[facility]NC - 02/07/2025 10:17 AM EDT Generic External Data Provider CLIN[facility]NC F inal Result [facility] * (ABNORMAL) ALL CBC WITH AUTO DIFF (02/07/2025 9:50 AM EDT) [facility] TB WBC 7.0 4.0 - 11.0 10 3/uL TBH TBH RBC 4.41(L) 4.70 - 6.10 10 6/uL TBH TBH HGB 14.3 14.0 - 18.0 g/dL TBH TBH HCT 41.3(L) 42.0 - 54.0 % TBH TBH MCV 93.7 80.0 - 94.0 fL TBH TBH MCH 32.4 25.9 - 34.0 pg TBH TBH MCHC 34.6 29.9 - 35.2 g/dL TBH TBH RDW 12.3 11.0 - 15.0 % TBH TBH PLT 181 150 - 450 10 3/uL TBH TBH MPV 9.5 9.5 - 13.5 fL TBH NEUTROPHILS PERCENT AUTO 70.1 43.0 - 75.0 % TBH LYMPHOCYTES PERCENT AUTO 17.8(L) 20.5 - 60.0 % TBH MONOCYTES PERCENT AUTO 7.6 1.7 - 12.0 % TBH TBH EO % 3.2 0.9 - 7.0 % TBH BASOPHILS PERCENT AUTO 1.0 0.2 - 2.0 % TBH IMMATURE GRANULOCYTES PCT AUTO 0.3 0.0 - 0.5 % TBH NEUTROPHILS ABSOLUTE AUTO 4.9 1.4 - 6.5 10 3/uL TBH LYMPHOCYTES ABSOLUTE AUTO 1.2 1.2 - 3.8 10 3/uL TBH MONOCYTES ABSOLUTE AUTO 0.5 0.3 - 0.8 10 3/uL TBH TBH EO # 0.2 0.0 - 0.7 10 3/uL TBH BASOPHILS ABSOLUTE AUTO 0.1 0.0 - 0.1 10 3/uL TBH IMMATURE GRANULOCYTES ABS AUTO 0.02 0.00 - 0.03 10 3/uL TBH 02/07/2025 9:50 AM EDT 02/07/2025 9:56 AM EDT Narrative CLINISYNC - 02/07/2025 10:09 AM EDT us Generic External Data Provider CLINISYNC F inal Result Performing Organization Address [facility] Co de Phone Number CLINISYNC TB * (ABNORMAL) ALL BASIC METABOLIC PANEL (02/07/2025 9:50 AM EDT) SODIUM 140 136 - 145 mmol/L TBH POTASSIUM 4.0 3.5 - 5.1 mmol/L TBH CHLORIDE 104 98 - 107 mmol/L TBH CARBON DIOXIDE 27.8 21.0 - 32.0 mmol/L TBH ANION GAP 12.2 TBH GLUCOSE 116(H) 74 - 106 mg/dL TBH BLOOD UREA NITROGEN 22.0(H) 7.0 - 18.0 mg/dL TBH CREATININE 0.99 0.70 - 1.30 mg/dL TBH TBH EGFR-AF [place] >60 >=60 mL/min/1.7 3m 2 TBH TBH EGFR-NON AF [place] >60 >=60 mL/min/1.7 3m 2 TBH BUN CREATININE RATIO 22.2 TBH CALCIUM 9.0 8.5 - 10.1 mg/dL TBH 02/07/2025 9:50 AM EDT 02/07/2025 9:56 AM EDT Narrative CLINISYSC - 02/07/2025 11:00 AM EDT Generic External Data Provider CLINISYNC F inal Result Performing Organization Address [facility] Co de Phone Number CLIN[facility]YNC TB * ECG 12-LEAD (02/07/2025 9:47 AM EDT) Anatomical Region Laterality Modality Other 02/07/2025 9:47 AM EDT Narrative 02/07/2025 6:04 [place] [address] Electrocardiograph Report Signed Patient: ZAID PITTMAN MR#: [id number] : 1950 Acct:[id number] Age/Sex: 74 / M ADM Date: 02/07/25 Loc: PST Attending Dr: Apollo Newman M.D. Ordering Physician: Apollo Newman M.D. 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 Measurements Intervals [place] Rate: 64 P: 52 NC: 238 QRS: 22 QRSD: 90 T: 35 QT: 402 QTc: 415 Interpretive Statements SINUS RHYTHM WITH FIRST DEGREE AV BLOCK Compared to ECG 05/11/2022 08:41:20 No significant changes Electronically Signed On 02-07-2025 18:04:21 EDT by JANICE KIRKLAND M.D. Dictated By: JANICE KIRKLAND Signed By: 02/07/25 1804 DD/ 0947 TD/TT: Cadd Instructor: Procedure Note Radiology, Radiologist, MD - 02/07/2025 [place] [address] Electrocardiograph Report Signed Patient: ZAID PITTMAN GMR#: [id number] : 1950cct:[id number] Age/Sex: 74 / MADM Date: 02/07/25 Loc: [facility] Attending Dr: Apollo Newman M.D. Ordering Physician: Apollo Newman M.D. 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 Measurements Intervals [place] Rate: 64 P: 52 NC: 238 QRS: 22 QRSD: 90 T: 35 QT: 402 QTc: 415 Interpretive Statements SINUS RHYTHM WITH FIRST DEGREE AV BLOCK Compared to ECG 05/11/2022 08:41:20 No significant changes Electronically Signed On 02-07-2025 18:04:21 EDT by JANICE KIRKLAND M.D. Dictated By: JANICE KIRKLAND Signed By:02/07/25 1804 DD/ 0947 TD/TT: Cadd Instructor: us Generic External Data Provider [facility] IMAGING Final Result * XR abdomen 1 view (01/25/2025 11:32 AM EDT) Anatomical Region Laterality Modality Abdomen Radiographic Nelda ging us Apollo Newman MD IMG XR PROCEDURES Final Result * PSA (01/25/2025 10:26 AM EDT) Blood Venous blood specimen / Unknown us Noms Provider Unallocated LAB BLOOD ORDERABLE S Final Result * Cryotherapy, skin lesion (12/05/2024 1:19 PM EDT) Carissa Sim MD DERM PROCEDURE ORDERABLES Fin al Result * Cryotherapy, skin lesion (12/05/2024 1:17 PM EDT) Carissa Sim MD DERM PROCEDURE ORDERABLES Fin al Result * Colonoscopy (02/25/2021 12:00 PM EDT) Anatomical Region Laterality Modality Endoscopy 02/25/2021 12:0 0 PM EDT Narrative 03/03/2021 12:00 PM EDT PERFORMED AT [facility] LOCATION:[id number] Rectal Polyp Removed Procedure Note CONVERSION, GENERIC - 01/27/2023 PERFORMED AT [facility] LOCATION:[id number] Rectal Polyp Removed Zaid Freire MD ENDOSCOPY PROCEDURE ORDERABLES Final Result from Last 3 Months or Most Recently Relevant to Health Maintenance Insurance [employer] Care Teams Siding Mechanic Relationship Specialty Start Date End Date Zaid Freire MD [address] [place] [address] PCP - Devoted 09/13/22 Zaid Freire MD [address] [place] [address] PCP - General Internal Medicine 02/11/23 Elías Coleman DPM [address] [facility] [address] [place] [address] Referring Physician Podiatry 04/06/23 Apollo Newman MD [address] [place] [address] Referring Physician Urology 10/12/23 Carissa Sim MD [address] [place] [address] Referring Physician Dermatology 10/12/[address] [facility] Ophthalmology 10/12/23
--- OUTSIDE RECORDS SUMMARY | 2025-02-15 07:39 | XMS_ITS | Encounter Summary ---
Author Organization [facility] Address [address] [facility] [place] [address] Care Team Providers Care Coil Spring Assembler Name Role Phone Zaid Freire MD Unavailable [phone] Zaid Freire MD Primary Care Provider [phone] Elías Coleman DPM Unavailable [phone] Apollo Newman MD Unavailable [phone] Carissa Sim MD Unavailable [phone] Encounter Details Date Type Department Care Team (Late st Contact Info) Description 02/07/2025 Clinisync Result Encounter [facility] External Department Unsolicited Provider, Generic External Data Social History Tobacco Use Types Packs/Day Years [...] 05/02/2025 10:45 AM EDT Office Visit [facility] [address] [place] [address] 06/07/2025 1:30 PM EDT Office Visit [facility] [address] [place] [address] Carissa Sim MD [address] [place] [address] documented as of this encounter Procedures Procedure Name Priority Date/Time Associated Diagnosis Comments ECG 12-LEAD 02/07/2025 9:47 AM EDT documented in this encounter Results * ECG 12-LEAD (02/07/2025 9:47 AM EDT) Anatomical Region Laterality Modality Other 02/07/2025 9:47 AM EDT Narrative 02/07/2025 6:04 PM EDT The [address] [address] Electrocardiograph Report Signed Patient: ZAID PITTMAN MR#: [id number] : 1950 Acct:[id number] Age/Sex: 74 / M ADM Date: 02/07/25 Loc: PST Attending Dr: Apollo Newman M.D. Ordering Physician: Apollo Newman M.D. Date of Service: 02/07/25 Procedure(s): ECG 12 lead Accession Number(s): [id number] cc: [facility] Test Date: 2025-02-07 Pat Name: ZAID PITTMAN Department: Room: - Gender: Male Director Transition: : 1950 Requested By: APOLLO NEWMAN Order Number: [id number] Reading MD: JANICE KIRKLAND M.D. Measurements Intervals [place] Rate: 64 P: 52 MT: 238 QRS: 22 QRSD: 90 T: 35 QT: 402 QTc: 415 Interpretive Statements SINUS RHYTHM WITH FIRST DEGREE AV BLOCK Compared to ECG 05/11/2022 08:41:20 No significant changes Electronically Signed On 02-07-2025 18:04:21 EDT by JANICE KIRKLAND M.D. Dictated By: JANICE KIRKLAND Signed By: 02/07/25 1804 DD/ 0947 TD/TT: Hay Chopper: Procedure Note Radiology, Radiologist, MD - 02/07/2025 [place] [address] Electrocardiograph Report Signed Patient: ZAID PITTMAN GMR#: [id number] : 1950cct:[id number] Age/Sex: 74 / MADM Date: 02/07/25 Loc: [facility] Attending Dr: Apollo Newman M.D. Ordering Physician: Apollo Newman M.D. Date of Service: 02/07/25 Procedure(s): ECG 12 lead Accession Number(s): [id number] cc: [facility] Test Date: 2025-02-07 Pat Name: ZAID PITTMAN Department: Room: - Gender: Male Director Transition: : 1950 Requested By: APOLLO NEWMAN Order Number: [id number] Reading MD: JANICE KIRKLAND M.D. Measurements Intervals [place] Rate: 64 P: 52 MT: 238 QRS: 22 QRSD: 90 T: 35 QT: 402 QTc: 415 Interpretive Statements SINUS RHYTHM WITH FIRST DEGREE AV BLOCK Compared to ECG 05/11/2022 08:41:20 No significant changes Electronically Signed On 02-07-2025 18:04:21 EDT by JANICE KIRKLAND M.D. Dictated By: JANICE KIRKLAND Signed By:02/07/25 1804 DD/ 0947 TD/TT: Hay Chopper: us Generic External Data Provider [facility] IMAGING Final Result documented in this encounter Visit Diagnoses Not on filedocumented in this encounter Care Teams Coil Spring Assembler Relationship Specialty Start Date End Date Zaid Freire MD [address] [place] [address] PCP - Devoted 09/13/22 Zaid Freire MD [address] [place] [address] PCP - General Internal Medicine 02/11/23 Elías Coleman DPM [address] [facility] 5 [place] [address] Referring Physician Podiatry 04/06/23 Apollo Newman MD [address] [place] [address] Referring Physician Urology 10/12/23 Carissa Sim MD [address] [place] [address] Referring Physician Dermatology 10/12/23 [facility] Ophthalmology 10/12/23 documented as of this encounter
--- OUTSIDE RECORDS SUMMARY | 2025-02-15 07:39 | XMS_ITS | Encounter Summary ---
Author Organization [facility] Address [address] [facility] [place] [address] Care Team Providers Care Roller Skate Assembler Name Role Phone Marco Freire MD Unavailable [phone] Marco Freire MD Primary Care Provider Elías Coleman DPM Unavailable [phone] Apollo Antonio MD Unavailable [phone] Carissa Sim MD Unavailable [phone] Encounter Details Date Type Department Care Team (Late st Contact Info) Description 10/27/2023 External Result Encounter [facility] External Department Unsolicited Cele Peace, CATE [address] [facility] [address] [place] [address] Social History Tobacco Use Types Packs/Day Years [...] 10:45 AM EDT Office Visit [facility] [address] [place] [address] 06/07/2025 1:30 PM EDT Office Visit [facility] [address] [place] [address] Carissa Sim MD [address] [place] [address] documented as of this encounter Procedures Procedure [...] Rashmi Peñaloza M.D.10/27/2023 3:48 PM Dictation Location: [place] [address] Transcribed By: [facility] 10/27/23 1548 Dictated By: Rashmi Peñaloza MD 10/27/23 1546 Signed By: <Electronically signed by Rashmi Peñaloza MD in OV> 10/27/23 1548 Narrative 10/27/2023 3:50 PM EST [facility] [place] [address] Nuclear Medicine Report Signed Patient: Marco Pittman MR#: [id number] : 1950 Acct:[id number] Age/Sex: 72 / M ADM Date: 10/26/23 Loc: Room: Type: [facility] Attending Dr: Cele Peace MOVIE MACHINE OPERATOR-C Copies to: CATE Alexandre MD Ordering Provider: [...] Procedure Note Rashmi Peñaloza MD - 10/28/[address] [facility] Main [place] [address] [place] [address] Nuclear Medicine Report Signed Patient: Marco Pittman GMR#: [id number] : 3Acct:[id number] Age/Sex: 72 / MADM Date: 10/26/23 Loc: Room:Type: [facility] Attending Dr: Cele Peace MOVIE MACHINE OPERATOR-C Copies to: CATE Alexandre MD Ordering Provider: [...] Rashmi Peñaloza M.D.10/27/2023 3:48 PM Dictation Location: [place] [address] Transcribed By: DEANA 10/27/23 5280 Dictated By: Rashmi Peñaloza MD 10/27/23 4830 Signed By: <Electronically signed by Rashmi Peñaloza MD in OV> 10/27/23 154 us Cele Peace NP CV STRESS PROCEDURES Final Re sult documented in this encounter Visit Diagnoses Not on filedocumented in this encounter Care Teams Roller Skate Assembler Relationship Specialty Start Date End Date Marco Freire MD [address] [facility] [address] [place] [address] PCP - Devoted 09/13/22 Marco Freire MD [address] [place] [address] PCP - General Internal Medicine 02/11/23 Elías Coleman DPM [address] [facility] 5 [place] [address] Referring Physician Podiatry 04/06/23 Apollo Antonio MD [address] [place] [address] Referring Physician Urology 10/12/23 Carissa Sim MD [address] [facility] [address] [place] [address] Referring Physician Dermatology 10/12/23 [facility] Ophthalmology 10/12/23 documented as of this encounter
--- OUTSIDE RECORDS SUMMARY | 2025-02-15 07:39 | XMS_ITS | Encounter Summary ---
Author Organization [facility] Address [address] [facility] [[email or web address]] [place] [address] Care Team Providers Care Dean Of Men Name Role Phone Marco Freire MD Unavailable [phone] Marco Freire MD Primary Care Provider Elías Coleman DPM Unavailable Apollo Antonio MD Unavailable Carissa Sim MD Unavailable [phone] Encounter Details Date Type Department Care Team (Late st Contact Info) Description 10/26/2023 Orders Only [facility] [address] [facility] [address] [place] [address] A, Unknown Practice [address] [place], [place] [phone] Social History Tobacco Use Types Packs/Day Years [...] IM [address] [place] [address] 06/07/2025 1:30 PM EDT Office Visit [facility] [address] [place] [address] Carissa Sim MD [address] [place] [address] documented as of this encounter Procedures Procedure [...] on filedocumented in this encounter Care Teams Dean Of Men Relationship Specialty Start Date End Date Marco Freire MD [address] [place] [address] PCP - Devoted 09/13/22 Marco Freire MD [address] [place] [address] PCP - General Internal Medicine 02/11/23 Elías Coleman DPM [address] [facility] 5 [place] [address] Referring Physician Podiatry 04/06/23 Apollo Antonio MD [address] [place] [address] Referring Physician Urology 10/12/23 Carissa Sim MD [address] [facility] [address] [place] [address] Referring Physician Dermatology 10/12/23 [facility] Ophthalmology 10/12/23 documented as of this encounter
--- OUTSIDE RECORDS SUMMARY | 2025-02-15 07:39 | XMS_ITS | Encounter Summary ---
Author Organization [facility] Address [address] [facility] [place] [address] Care Team Providers Care Telephone Recorder Name Role Phone Marco Freire MD Unavailable [phone] Marco Freire MD Primary Care Provider Elías Coleman DPM Unavailable Apollo Antonio MD Unavailable [phone] Carissa Sim MD Unavailable Encounter Details Date Type Department Care Team (Late st Contact Info) Description 10/10/2024 Orders Only [facility] [address] [facility] [address] [place] [address] Apollo Antonio MD [address] [place] [address] Social History Tobacco Use Types [...] IM [address] [place] [address] 06/07/2025 1:30 PM EDT Office Visit [facility] [address] [place] [address] Carissa Sim MD [address] [place] [address] documented as of this encounter Procedures Procedure Name Priority Date/Time Associated Diagnosis Comments PSA, TOTAL Routine 06/13/2024 10:56 AM EDT documented in this encounter Results * PSA (06/13/2024 10:56 AM EDT) Blood Venous blood specimen / Unknown us Apollo Antonio MD LAB BLOOD ORDERABLES Final R esult documented in this encounter Visit Diagnoses Not on filedocumented in this encounter Care Teams Telephone Recorder Relationship Specialty Start Date End Date Marco Freire MD [address] [place] [address] PCP - Devoted 09/13/22 Marco Freire MD [address] [place] [address] PCP - General Internal Medicine 02/11/23 Elías Coleman DPM [address] [facility] [address] [place] [address] Referring Physician Podiatry 04/06/23 Apollo Antonio MD [address] [facility] [place] [address] Referring Physician Urology 10/12/23 Carissa Sim MD [address] [place] [address] Referring Physician Dermatology 10/12/23 [facility] Ophthalmology 10/12/23 documented as of this encounter
--- OUTSIDE RECORDS SUMMARY | 2025-02-15 07:39 | XMS_ITS | Encounter Summary ---
Author Organization [facility] Address [address] [facility] [place] [address] Care Team Providers Care Motorized Squad Sergeant Name Role Phone Marco Freire MD Unavailable [phone] Marco Freire MD Primary Care Provider Elías Coleman DPM Unavailable [phone] Apollo Antonio MD Unavailable [phone] Carissa Sim MD Unavailable [phone] Encounter Details Date Type Department Care [...] 05/02/2025 10:45 AM EDT Office Visit [facility] [address] [place] [address] 06/07/2025 1:30 PM EDT Office Visit [facility] [address] [place] [address] Carissa Sim MD [address] [place] [address] documented as of this encounter Procedures Procedure Name Priority Date/Time Associated Diagnosis Comments SRMCOH PROTHROMBIN TIME INR W/O COUM Routine 02/07/2025 9:50 AM EDT [facility] APTT Routine 02/07/2025 9:50 AM EDT ALL CBC WITH AUTO DIFF Routine 02/07/2025 9:50 AM EDT ALL BASIC METABOLIC PANEL Routine 02/07/2025 9:50 AM EDT documented in this encounter Results * (ABNORMAL) ALL BASIC METABOLIC PANEL (02/07/2025 [...] 0.70 - 1.30 mg/dL TBH TBH EGFR-AF [facility] >60 >=60 mL/min/1.7 3m 2 TBH TBH EGFR-NON AF [facility] >60 >=60 mL/min/1.7 3m 2 TBH BUN CREATININE RATIO 22.2 TBH CALCIUM 9.0 8.5 - 10.1 mg/dL TBH 02/07/2025 9:50 AM EDT 02/07/2025 9:56 AM EDT Narrative CLINISYNC - 02/07/2025 11:00 AM EDT Generic External Data Provider CLINISYNC F inal Result Performing Organization Address City/[facility]/ZIP Co de Phone Number MARIANNECOUNT INCLUDES [facility] * [facility]/O COUM (02/07/2025 9:50 AM EDT) PROTHROMBIN TIME 11.5 9.0 - 11.6 sec TB TBH INR 1.09 TBH Comment: DESIRED INR: 2.0-3.0 CONDITIONS NOT LISTED BELOW 2.5-3.5 FOR PROSTHETIC HEART VALVE REPLACEMENT 2.5-3.5 RECURRENT THROMBOSIS 02/07/2025 9:50 AM EDT 02/07/2025 9:56 AM EDT Narrative CLINISYNC - 02/07/2025 10:17 AM EDT Generic External Data Provider CLINISYNC F inal Result [facility] * [facility] APTT (02/07/2025 9:50 AM EDT) PARTIAL THROMBOPLASTIN TIME 27.9 22.3 - 36.2 sec TB 02/07/2025 9:50 AM EDT 02/07/2025 9:56 AM EDT Narrative CLINISYNC - 02/07/2025 10:17 AM EDT us Generic External Data Provider CLINCARINNC F inal Result [facility] * (ABNORMAL) ALL CBC WITH AUTO DIFF (02/07/2025 9:50 AM EDT) [facility] TB WBC 7.0 4.0 - 11.0 10 [...] External Data Provider CLINISYNC F inal Result [facility] documented in this encounter Visit Diagnoses Not on filedocumented in this encounter Care Teams Motorized Squad Sergeant Relationship Specialty Start Date End Date Marco Freire MD [address] [place] [address] PCP - Devoted 09/13/22 Marco Freire MD [address] [place] [address] PCP - General Internal Medicine 02/11/23 Elías Coleman DPM [address] [facility] 5 [place] [address] Referring Physician Podiatry 04/06/23 Apollo Antonio MD [address] [place] [address] Referring Physician Urology 10/12/23 Carissa Sim MD [address] [place] [address] Referring Physician Dermatology 10/12/23 [facility] Ophthalmology 10/12/23 documented as of this encounter
--- OUTSIDE RECORDS SUMMARY | 2025-02-15 07:39 | XMS_ITS | Encounter Summary ---
Author Organization [facility] Address [address] [facility] [place] [address] Care Team Providers Care Manager Hair Name Role Phone Marco Freire MD Unavailable [phone] Marco Freire MD Primary Care Provider Elías Coleman DPM Unavailable Apollo Antonio MD Unavailable Carissa Sim MD Unavailable Encounter Details Date Type Department Care Team (Late st Contact Info) Description 10/09/2024 Orders Only [facility] [address] [facility] [address] [place] [address] Unallocated, Noms Provider, [address] [place], [place] [id number] Social History Tobacco Use Types Packs/Day Years [...] IM [address] [place] [address] 06/07/2025 1:30 PM EDT Office Visit [facility] [address] [place] [address] Carissa Sim MD [address] [place] [address] documented as of this encounter Procedures Procedure Name Priority Date/Time Associated Diagnosis Comments DIABETIC RETINOPATHY SCREENING - OU - BOTH EYES Routine 04/24/2024 3:34 PM EDT documented in this encounter Results * Diabetic Retinopathy Screening - OU - Both Eyes (04/24/2024 3:34 PM EDT) Anatomical Region Laterality Modality Head Other us Noms Provider Unallocated OPHTH PHOTOGRAPHY F inal Result documented in this encounter Visit Diagnoses Not on filedocumented in this encounter Care Teams Manager Hair Relationship Specialty Start Date End Date Marco Freire MD [address] [place] [address] PCP - Devoted 09/13/22 Marco Freire MD [address] [place] [address] PCP - General Internal Medicine 02/11/23 Elías Coleman DPM [address] [facility] [place] [address] Referring Physician Podiatry 04/06/23 Apollo Antonio MD [address] [facility] [place] [address] Referring Physician Urology 10/12/23 Carissa Sim MD [address] [place] [address] Referring Physician Dermatology 10/12/23 [facility] Ophthalmology 10/12/23 documented as of this encounter
--- OUTSIDE RECORDS SUMMARY | 2025-02-15 07:39 | XMS_ITS | Encounter Summary ---
Author Organization [facility] Address [address] [facility] [place] [address] Care Team Providers Care Farm Field Manager Name Role Phone Marco Freire MD Unavailable [phone] Marco Freire MD Primary Care Provider Elías Coleman DPM Unavailable Apollo Antonio MD Unavailable [phone] Carissa Sim MD Unavailable Encounter Details Date Type Department Care Team (Late st Contact Info) Description 01/26/2025 Orders Only [facility] [address] [place] [address] Unallocated, Noms Provider, [address] [place], [place] [phone] Social History Tobacco Use Types Packs/Day Years [...] IM [address] [place] [address] 06/07/2025 1:30 PM EDT Office Visit [facility] [address] [place] [address] Carissa Sim MD [address] [place] [address] documented as of this encounter Procedures Procedure [...] on filedocumented in this encounter Care Teams Farm Field Manager Relationship Specialty Start Date End Date Marco Freire MD [address] [place] [address] PCP - Devoted 09/13/22 Marco Freire MD [address] [place] [address] PCP - General Internal Medicine 02/11/23 Elías Coleman DPM [address] [facility] 5 [place] [address] Referring Physician Podiatry 04/06/23 Apollo Antonio MD [address] [place] [address] Referring Physician Urology 10/12/23 Carissa Sim MD [address] [facility] [address] [place] [address] Referring Physician Dermatology 10/12/23 [facility] Ophthalmology 10/12/23 documented as of this encounter
--- OUTSIDE RECORDS SUMMARY | 2025-02-15 07:39 | XMS_ITS | Encounter Summary ---
Author Organization [facility] Address [address] [facility] [place] [address] Care Team Providers Care Mechanical Development Engineer Name Role Phone Marco Freire MD Unavailable [phone] Marco Freire MD Primary Care Provider Elías Coleman DPM Unavailable Apollo Antonio MD Unavailable [phone] Carissa Sim MD Unavailable [phone] Encounter Details Date Type Department Care Team (Late st Contact Info) Description 10/26/2023 External Result Encounter [facility] External Department Unsolicited Cele Peace, CATE [address] [facility] [address] [place] [address] Social History Tobacco Use Types Packs/Day Years [...] IM [address] [place] [address] 06/07/2025 1:30 PM EDT Office Visit [facility] [address] [place] [address] Carissa Sim MD [address] [place] [address] documented as of this encounter Procedures Procedure Name Priority Date/Time Associated Diagnosis Comments CONGENITAL TRANSTHORACIC ECHO (TTE) COMPLETE 10/26/2023 8:40 AM EST documented in this encounter Results * Congenital transthoracic echo (TTE) complete (10/26/2023 8:40 AM EST) Anatomical Region Laterality Modality Heart Ultrasound 10/26/2023 8:40 AM EST Narrative 10/26/2023 12:06 PM EST [facility] Main [address] [address] Echocardiogram Signed Patient: Marco Pittman MR#: [id number] : 1950 Acct:[id number] Age/Sex: 72 / M ADM Date: 10/26/23 Loc: Room: Type: [facility] Attending Dr: Cele Peace SHOTGUN SHELL LOADING MACHINE OPERATOR-C Ordering Provider: Cele Peace NP Date of Service: 10/26/23/ [facility] echo transthoracic: SOB. Copies to: MD Cele Miller NP Weight: 286 lb Performed By: Lucita Bernstein JONO BSA: 2.3 m2 BP: 118/60 mmHg HR: 77 Reason For Study: SOB. History: FIDEL. Family history: Father at 44 years old from [place]. Interpretation Summary Ejection Fraction = 55-60%. The left ventricular wall motion is normal. The left ventricular size and thickness are normal. A variety of Doppler measurements indicate normal left ventricular diastolic function. No significant valvular abnormalities. Compared to prior study, there is no significant change. Procedure/Quality: A two-dimensional transthoracic echocardiogram with color flow, Doppler and injection of contrast agent Definity was performed. The study was technically fair in quality. Left Ventricle: The left ventricular size and thickness are normal. Ejection Fraction = 55-60%. A variety of Doppler measurements indicate normal left ventricular diastolic function. The left ventricular wall motion is normal. Left Atrium: The left atrium appears normal in size. Right Atrium: The right atrium appears normal in size. Right Ventricle: The right ventricle is normal in size and function. Aortic Valve: The aortic valve is trileaflet. The aortic valve is normal in structure. No hemodynamically significant valvular aortic stenosis. No significant aortic regurgitation. Mitral Valve: The mitral valve is normal in structure. No significant mitral valve stenosis. There is no mitral regurgitation noted. Tricuspid Valve: The tricuspid valve is normal in structure. No tricuspid regurgitation. Pulmonic Valve: The pulmonic valve is not well visualized. No significant pulmonic regurgitation. Arteries: The aortic root is normal size. Pericardium/Pleura: No pericardial effusion seen. There is no pleural effusion. IVC/Hepatic Veins: The inferior vena cava was not visualized during the exam. Measurements with Normals IVSd: 1.3 cm (0.7-1.1 cm)LVIDd: 5.1 cm (3.7-5.4 cm) LVPWd: 1.1 cm (0.7-1.1 cm)LVIDs: 3.7 cm (2.3-3.6 cm) LA dimension: 4.3 cm (2.3-4.0 cm)Ao root diam: 3.3 cm(2.0-3.6 cm) asc Aorta Diam: 3.2 cm(2.1-3.4cm) Doppler with Normals LV V1 max: 89.7 cm/sec (0.7-1.7m/s)MV E max hawk: 77.6 cm/sec(0.8-1.3m/s) MV A max hawk: 96.0 cm/sec(0.0-0.0m/s) MV E/A: 0.81 (<1.5) MMode/2D Measurements Calculations TAPSE: 2.6 cm FS: 26.9 % Ao root area: LVOT diam: 2.0 cm RV S Hawk: EDV(Teich): 8.8 cm2 LVOT area: 3.1 cm2 11.9 cm/sec 122.3 ml ESV(Teich): 58.4 ml EF(Teich): 52.2 % __ LVLd ap4: 9.1 cm SV(MOD-sp4): LAV(MOD-sp4): LA A2 area: 16.3 cm2 EDV(MOD-sp4): 119.9 ml 44.4 ml 182.0 ml LAV(MOD-sp2): LA A4 area: 18.9 cm2 LVLs ap4: 7.0 cm 41.7 ml LA length (vol): ESV(MOD-sp4): 6.0 cm 62.1 ml LA vol: 43.7 ml EF(MOD-sp4): 65.9 % LA vol index: 18.8 ml/m2 Doppler Measurements Calculations MV dec time: MV max PG: E/E' lat: 7.2 MV dec slope: 0.24 sec 63.0 mmHg E/E' med: 11.9 322.9 cm/sec2 __ Ao V2 max: LV V1 max PG: MR max hawk: 116.7 cm/sec 3.2 mmHg 396.8 cm/sec Ao max PG: LV V1 mean PG: MR max P.5 mmHg 2.2 mmHg 63.0 mmHg Ao mean PG: LV V1 mean: 3.6 mmHg 72.0 cm/sec Ao V2 mean: LV V1 VTI: 16.3 cm 90.7 cm/sec Ao V2 VTI: 21.1 cm JUDITH(I,D): 2.4 cm2 JUDITH(V,D): 2.3 cm2 Transcribed By: ANN Performed At: 10/26/23 0840 Signed By: Viktor Horton MD 10/26/23 1205 Procedure Note Shaun Horton MD - 10/26/2023 [facility] Main [place] [address] [place] [address] Echocardiogram Signed Patient: Marco Pittman GMR#: [id number] : 1950cct:[id number] Age/Sex: 72 / MADM Date: 10/26/23 Loc: Room:Type: [facility] Attending Dr: Cele Peace SHOTGUN SHELL LOADING MACHINE OPERATOR-C Ordering Provider: Cele Peace NP Date of Service: 10/26/23/ [facility] echo transthoracic: SOB. Copies to: MD Cele Miller NP Weight: 286 lb Performed By: Lucita Bernstein RDCS BSA: 2.3 m2 BP: 118/60 mmHg HR: 77 Reason For Study: SOB. History: FIDEL. Family history: Father at 44 years old from [place]. Interpretation Summary Ejection Fraction = 55-60%. The left ventricular wall motion is normal. The left ventricular size and thickness are normal. A variety of Doppler measurements indicate normal left ventriculardiastolic function. No significant valvular abnormalities. Compared to prior study, there is no significant change. Procedure/Quality: A two-dimensional transthoracic echocardiogram withcolor flow, Doppler and injection of contrast agent Definity was performed. The study was technically fair in quality. Left Ventricle: The left ventricular size and thickness are normal.Ejection Fraction = 55-60%. A variety of Doppler measurements indicate normal left ventricular diastolic function. The left ventricular wall motion isnormal. Left Atrium: The left atrium appears normal in size. Right Atrium: The right atrium appears normal in size. Right Ventricle: The right ventricle is normal in size and function. Aortic Valve: The aortic valve is trileaflet. The aortic valve is normalin structure. No hemodynamically significant valvular aortic stenosis. No significant aortic regurgitation. Mitral Valve: The mitral valve is normal in structure. No significantmitral valve stenosis. There is no mitral regurgitation noted. Tricuspid Valve: The tricuspid valve is normal in structure. Notricuspid regurgitation. Pulmonic Valve: The pulmonic valve is not well visualized. Nosignificant pulmonic regurgitation. Arteries: The aortic root is normal size. Pericardium/Pleura: No pericardial effusion seen. There is no pleural effusion. IVC/Hepatic Veins: The inferior vena cava was not visualized during the exam. Measurements with Normals IVSd: 1.3 cm (0.7-1.1 cm)LVIDd: 5.1 cm (3.7-5.4 cm) LVPWd: 1.1 cm (0.7-1.1 cm)LVIDs: 3.7 cm (2.3-3.6 cm) LA dimension: 4.3 cm (2.3-4.0 cm)Ao root diam: 3.3 cm(2.0-3.6 cm) asc Aorta Diam: 3.2 cm(2.1-3.4cm) Doppler with Normals LV V1 max: 89.7 cm/sec (0.7-1.7m/s)MV E max hawk: 77.6 cm/sec(0.8-1.3m/s) MV A max hawk: 96.0 cm/sec(0.0-0.0m/s) MV E/A: 0.81 (<1.5) MMode/2D Measurements Calculations TAPSE: 2.6 cm FS: 26.9 % Ao root area: LVOT diam: 2.0 cm RV S Hawk: EDV(Teich): 8.8 cm2 LVOT area: 3.1cm2 11.9 cm/sec 122.3 ml ESV(Teich): 58.4 ml EF(Teich): 52.2 % __ LVLd ap4: 9.1 cm SV(MOD-sp4): LAV(MOD-sp4): LA A2 area: 16.3cm2 EDV(MOD-sp4): 119.9 ml 44.4 ml 182.0 ml LAV(MOD-sp2): LA A4 area: 18.9cm2 LVLs ap4: 7.0 cm 41.7 ml LA length (vol): ESV(MOD-sp4): 6.0 cm 62.1 ml LA vol: 43.7 ml EF(MOD-sp4): 65.9 % LA vol index: 18.8 ml/m2 Doppler Measurements Calculations MV dec time: MV max PG: E/E' lat: 7.2 MV dec slope: 0.24 sec 63.0 mmHg E/E' med: 11.9 322.9 cm/sec2 __ Ao V2 max: LV V1 max PG: MR max hawk: 116.7 cm/sec 3.2 mmHg 396.8 cm/sec Ao max PG: LV V1 mean PG: MR max P.5 mmHg 2.2 mmHg 63.0 mmHg Ao mean PG: LV V1 mean: 3.6 mmHg 72.0 cm/sec Ao V2 mean: LV V1 VTI: 16.3 cm 90.7 cm/sec Ao V2 VTI: 21.1 cm JUDITH(I,D): 2.4 cm2 JUDITH(V,D): 2.3 cm2 Transcribed By: SCV Performed At: 10/26/23 7340 Signed By: Viktor Horton MD 10/26/23 2328 us Cele Peace SHOTGUN SHELL LOADING MACHINE OPERATOR CV ECHO PROCEDURES Final Resu lt documented in this encounter Visit Diagnoses Not on filedocumented in this encounter Care Teams Mechanical Development Engineer Relationship Specialty Start Date End Date Marco Freire MD [address] [place] [address] PCP - Devoted 09/13/22 Marco Freire MD [address] [place] [address] PCP - General Internal Medicine 02/11/23 Elías Coleman DPM [address] [facility] 5 [place] [address] Referring Physician Podiatry 04/06/23 Apollo Antonio MD [address] [place] [address] Referring Physician Urology 10/12/23 Carissa Sim MD [address] [place] [address] Referring Physician Dermatology 10/12/23 [facility] Ophthalmology 10/12/23 documented as of this encounter
--- OUTSIDE RECORDS SUMMARY | 2025-02-15 07:40 | XMS_ITS | Clinical Summary ---
Author Organization [facility] Address [address] [place] [address] Phone Care Team Providers Care Care Program Resident Name Role Phone Unavailable Primary Care Provider [...]
--- OUTSIDE RECORDS SUMMARY | 2025-02-15 07:40 | XMS_ITS | Encounter Summary ---
Author Organization [facility] Address [address] [facility] [place] [address] Care Team Providers Care Quality Assurance Lead Name Role Phone Marco Freire MD Unavailable [phone] Marco Freire MD Primary Care Provider Elías Coleman DPM Unavailable Apollo Antonio MD Unavailable Carissa Sim MD Unavailable [phone] Encounter Details Date Type Department Care Team (Late st Contact Info) Description 02/12/2025 Bamboo flowsheet [facility] [address] [place] [address] Elías Coleman DPM [address] [address] Social History Tobacco Use Types Packs/Day [...] Upcoming Encounters Date Type Department Care Team ([facility] st Contact Info) Description 05/02/2025 10:45 AM EDT Office Visit [facility] [address] [place] [address] 06/07/2025 1:30 PM EDT Office Visit [facility] [address] [place] [address] Carissa Sim MD [address] [place] [address] documented as of this encounter Visit Diagnoses Not on filedocumented in this encounter Care Teams Quality Assurance Lead Relationship Specialty Start Date End Date Marco Freire MD [address] [facility] [address] [place] [address] PCP - Devoted 09/13/22 Marco Freire MD [address] [place] [address] PCP - General Internal Medicine 02/11/23 Elías Coleman DPM [address] [facility] [address] [place] [address] Referring Physician Podiatry 04/06/23 Apollo Antonio MD [address] [place] [address] Referring Physician Urology 10/12/23 Carissa Sim MD [address] [place] [address] Referring Physician Dermatology 10/12/23 [facility] Ophthalmology 10/12/23 documented as of this encounter
--- OUTSIDE RECORDS SUMMARY | 2025-02-15 07:40 | XMS_ITS | Clinical Summary ---
Author Organization [facility] Address [address] [place] [address] Care Team Providers Care Slope Hoist Operator Name Role Phone Kolton Patterson MD Primary Care Provider [phone] Allergies Active Allergy Reactions Criticality Noted Date [...] N ot on file 08/22/2020 Data from: [email or web address] Last address used for calculation Not on [...] Insurance [employer] Care Teams Slope Hoist Operator Relationship Specialty Start Date End Date Kolton Patterson MD PCP - General Internal Medicine 03/08/20
[2025-02-15] MEDS: LACTATED RINGER'S SOLUTION 1,000 ML 50 ML IV ×2 (08:13→11:21)
[2025-02-15] MEDS: CEFAZOLIN SODIUM 2 GM/50 ML D5W PREMIX IV (10:11)
--- NOTE | 2025-02-15 11:49 | PM.URSON ---
Urology Surgery Operative Note Operative Note Procedure Date: 02/15/25 Time Out Performed: yes Pre-op Diagnosis: Right nephrolithiasis Post-op Diagnosis: same as pre-op Procedures performed: 1. Cystoscopy. 2. Right rigid ureteral dilation. 3. Right ureteroscopy. 4. Right pyeloscopy. 5. Thulium laser lithotripsy of multiple right renal calculi. 6. Placement of 6 Lithuanian variable length right ureteral stent Anesthesia: OBDULIA Primary Surgeon: Apollo Antonio Complications: None Estimated blood loss (mL): 5 Findings: 1. Multiple mid and lower pole renal calculi. 2. 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 3. Anterior urethral strictures Specimens: None Drains: 6 Lithuanian variable length right ureteral stent Indications for Procedures: This gentleman has recurrent right nephrolithiasis. He now presents for definitive ureteroscopic laser lithotripsy and probable right stent placement. He has signed an informed consent after risks were explained. Detailed description of Procedure: The patient was brought to the operating room and placed on the operating room table in the supine position. SCDs were placed on the lower extremities and turned on and functioning during the entire case. Timeout was done by all parties in the room. We all agreed upon the patient's identification and the planned procedures for this patient. Genn. anesthesia was then administered. The patient was then repositioned into the modified dorsal lithotomy position. All pressure points were satisfactorily padded. Genitalia were sterilely prepped and draped in usual fashion. I started by passing a 22 Lithuanian Olympus cystoscope per urethra and into the bladder. The anterior urethra revealed to, strictures just distal to the bulb. Prostatic urethra had moderate hypertrophy bilaterally. Panendoscopy in the bladder revealed no evidence of any tumors or stones. I passed a Glidewire through the scope and into the right ureter and up to the kidney. I then used a 10 Lithuanian dilator and dilated the distal right ureter. The dilator was removed. The scope was removed. I then passed an 10/12 Lithuanian access sheath over the wire up to the L5 position. The wire and stylette were then removed. I then passed a flexible ureteroscope through the access sheath and into the ureter. I then ascended up the ureter and then went into the kidney and did pyeloscopy. I looked into the upper mid and lower pole calyces. In the upper and mid pole calyces there were several Ney's plaques. In 2 of the midpole calyces and 2 of the lower pole calyces there were multiple stones. I passed a 200 Angstrom laser fiber and using the thulium laser on 7 W in the dusting mode I began fragmenting and dusting stones. I did all of the stones within the midpole calyces on dusting. I then went to the lower pole calyces and similarly dusted the stones but also used fragmentation mode intermittently. Upon completion there was nothing remaining but sand and sub-1 mm fragments. There was minimal bleeding in the kidney. Fluoroscopically we had no evidence of any visible stones as we did prior to starting the case. A Glidewire was passed through the scope in the kidney and the scope and access sheath were then removed. Cystoscope was then backloaded over the wire and passed into the bladder and a 6 Lithuanian variable length ureteral stent was slid over the wire up to the kidney. The wire was removed and there were good curls in the kidney and in the bladder. The bladder was drained of its contents and the scope was then removed. He was then transferred [facility] a [facility] bed and wheeled to PACU in stable condition. He will be discharged to home later today with a prescription for Keflex 500 twice daily for a week and Myrbetriq 500 mg daily #14.
[2025-02-15] MEDS: SOLIFENACIN SUCCINATE 10 MG TABLET PO (12:18)
== END 2025-02-15 13:51 | disposition home or self-care (01) ==
LOC: SURGOUT 07:38
PROVIDERS: Family Provider Internal Medicine; PCP Internal Medicine; Visit Provider Urology
PROC: (CPT 918; principal; 2025-02-15 09:00)
DX: N20.0 Calculus of kidney (principal); R97.20 Elevated prostate specific antigen [PSA]; I10 Essential (primary) hypertension; N35.914 Unspecified anterior urethral stricture, male; Z96.649 Presence of unspecified artificial hip joint; G47.33 Obstructive sleep apnea (adult) (pediatric); R06.09 Other forms of dyspnea; M54.16 Radiculopathy, lumbar region; M47.12 Other spondylosis with myelopathy, cervical region
CPT/HCPCS: 52356; 36415; 76000; J0690

== ENCOUNTER 2025-04-23 12:19 | Outpatient (OUT) | payer OTHER, SELFPAY ==
[2025-04-23 13:08] LABS: Hematocrit 41.5 % (42.0-54.0); Hemoglobin 14.8 g/dL (14.0-18.0); Immature Granulocytes Abs Auto 0.02 10^3/uL (0.00-0.03); Immature Granulocytes Pct Auto 0.3 % (0.0-0.5); Lymphocytes Absolute Auto 1.4 10^3/uL (1.2-3.8); Mean Corpuscular HGB Conc 35.7 g/dL (29.9-35.2); Mean Corpuscular Hemoglobin 33.5 pg (25.9-34.0); Mean Corpuscular Volume 93.9 fL (80.0-94.0); Platelet Count 216 10^3/uL (150-450); Red Blood Count 4.42 10^6/uL (4.70-6.10); White Blood Count 7.6 10^3/uL (4.0-11.0)
--- NOTE | 2025-04-23 13:14 | PM.PRESUREVA ---
History of Present Illness History of Present Illness Chief complaint: ELEVATED PSA, PROSTATE LESION ON MRI Narrative: Patient presents for presurgical testing. The patient states he was evaluated by Dr. Antonio for follow-up after his kidney stone procedure here in February of this year and it was determined that his PSA was elevated, he had an abnormal prostate MRI and is now scheduled for a prostate biopsy. The patient states overall he feels he is doing well and has no urinary complaints at this time. Review of Systems ROS Narrative REVIEW OF SYSTEMS: Negative except as stated in HPI, ten or more systems reviewed. Constitutional: No fever, chills, weakness ENT: No sore throat or epistaxis Cardiovascular: No chest pain or palpitations Respiratory: No cough or wheezing Musculoskeletal: No joint pain or swelling Gastrointestinal: No abdominal pain, constipation, diarrhea, or vomiting Genitourinary: No dysuria or hematuria Neurological: No numbness, tingling, weakness, or headache Psychiatric: No mood changes PFSH PFS Medical History (Updated 04/20/25 @ 13:11 by Tete Talbert NP) Lesion of prostate ?N42.9 - Disorder of prostate, unspecified (ICD-10) Elevated PSA ?R97.20 - Elevated prostate specific antigen [PSA] (ICD-10) Lumbar spinal stenosis ?M48.061 - Spinal stenosis, lumbar region without neurogenic claudication (ICD-10) Lumbar radiculopathy ?M54.16 - Radiculopathy, lumbar region (ICD-10) Chronic back pain ?M54.9 - Dorsalgia, unspecified (ICD-10) ?G89.29 - Other chronic pain (ICD-10) Cervical spondylosis with myelopathy ?M47.12 - Other spondylosis with myelopathy, cervical region (ICD-10) Anxiety ?F41.9 - Anxiety disorder, unspecified (ICD-10) Neck pain ?M54.2 - Cervicalgia (ICD-10) DDD (degenerative disc disease) Back pain ?M54.9 - Dorsalgia, unspecified (ICD-10) Arthritis ?M19.90 - Unspecified osteoarthritis, unspecified site (ICD-10) Sleep apnea ?G47.30 - Sleep apnea, unspecified (ICD-10) Tremor ?R25.1 - Tremor, unspecified (ICD-10) Kidney stones ?N20.0 - Calculus of kidney (ICD-10) Dyspnea on exertion ?R06.09 - Other forms of dyspnea (ICD-10) S/P extracorporeal shock wave therapy ?Z98.890 - Other specified postprocedural states (ICD-10) Surgical History (Updated 04/20/25 @ 11:24 by Tete Talbert NP) S/P cystoscopy with ureteral stent placement (02/15/25) ?Z96.0 - Presence of urogenital implants (ICD-10) S/P epidural steroid injection ?Z92.241 - Personal history of systemic steroid therapy (ICD-10) History of tonsillectomy ?Z90.89 - Acquired absence of other organs (ICD-10) History of colonoscopy ?Z98.890 - Other specified postprocedural states (ICD-10) S/P ureteral stent placement ?Z96.0 - Presence of urogenital implants (ICD-10) S/P cystoscopy ?Z98.890 - Other specified postprocedural states (ICD-10) History of total hip arthroplasty ?Z96.649 - Presence of unspecified artificial hip joint (ICD-10) Social History (Updated 02/07/25 @ 09:26 by Tete Talbert NP) Within the past year, how often did you have a drink containing alcohol: never Score interpretation: A score less than 4 is consistent with normal alcohol consumption. Smoking status: Never smoker Non-prescribed substance use: denies use Highest level of school completed/degree received: Bachelor's degree Meds Home Medications and Allergies Home Medications ?Medication ?Instructions ?Recorded ?Confirmed ?Type cholecalciferol (vitamin D3) 50 6,000 unit PO DAILY 02/07/25 04/23/25 History mcg (2,000 unit) capsule diclofenac sodium 75 mg 75 mg PO Q12H 02/07/25 04/23/25 History tablet,delayed release escitalopram oxalate 20 mg tablet 20 mg PO DAILY 02/07/25 04/23/25 History hydrochlorothiazide 12.5 mg capsule 12.5 mg PO DAILY 02/07/25 04/23/25 History omega 0-cem-ueu-fish oil 300 1 cap PO DAILY 02/07/25 04/23/25 History mg-1,000 mg capsule (Fish Oil) pregabalin 25 mg capsule (Lyrica) 25 mg PO DAILY PRN back pain 02/07/25 04/23/25 History propranolol 60 mg tablet 60 mg PO Q12H tremor 02/07/25 04/23/25 History tizanidine 4 mg capsule 4 mg PO BID PRN muscle spasticity 02/07/25 04/23/25 History vitamin B complex 1 tab PO DAILY 02/07/25 04/23/25 History mirabegron 50 mg tablet,extended 50 mg PO Q24H #14 tabs 02/15/25 04/23/25 Rx release 24 hr (Myrbetriq) ciprofloxacin HCl 500 mg tablet 500 mg PO Q12H 04/23/25 04/23/25 History Allergies Allergy/AdvReac Type Severity Reaction Status Date / Time cat dander Allergy Unknown Verified 04/23/25 12:39 codeine Allergy Dizziness Verified 04/23/25 12:39 Milk Containing Products Allergy Unknown Verified 04/23/25 12:39 (Dairy) Exam Narrative Exam Narrative: Constitutional: Awake, alert, comfortable, well-appearing, nontoxic, interactive, vital signs as charted Head: Normocephalic, atraumatic Neck: Supple, normal appearance, normal range of motion, no meningeal signs, no lymphadenopathy Respiratory: No respiratory distress, breath sounds clear Cardiovascular: Regular rate and rhythm, strong and regular heart tones Abdomen: Nontender, normal bowel sounds, soft, no CVA tenderness Musculoskeletal: Ambulates with an antalgic gait using a cane, no swelling or edema Skin: No rashes or induration, no lesions, only visible skin inspected Neuro: Mild right upper extremity tremor noted, normal sensation Psychiatric: Oriented ?3, normal affect Assessment and Plan Assessment and Plan (1) Elevated PSA: (2) Lesion of prostate: Plan MRI prostate fusion biopsy scheduled with Dr. Antonio April 26, 2025.
[2025-04-23 13:21] LABS: INR 1.12; Partial Thromboplastin Time 28.9 sec (22.3-36.2); Prothrombin Time 11.7 sec (9.0-11.6)
[2025-04-23 13:27] LABS: Anion Gap 13.6; Blood Urea Nitrogen 21.0 mg/dL (7.0-18.0); Calcium 9.2 mg/dL (8.5-10.1); Carbon Dioxide 26.5 mmol/L (21.0-32.0); Chloride 103 mmol/L (98-107); Estimated GFR (African America >60 (>=60 mL/min/1.73m^2); Estimated GFR (Non-African Ame >60 (>=60 mL/min/1.73m^2); Glucose 104 mg/dL (74-106); Potassium 4.1 mmol/L (3.5-5.1); Sodium 139 mmol/L (136-145)
== END 2025-04-23 12:20 | disposition home or self-care (01) ==
PROVIDERS: Family Provider Internal Medicine; PCP Internal Medicine; Visit Provider Urology
DX: Z01.812 Encounter for preprocedural laboratory examination (principal); Z01.818 Encounter for other preprocedural examination; R97.20 Elevated prostate specific antigen [PSA]
CPT/HCPCS: 36415; 80048; 85025; 85610; 85730; G0463

== ENCOUNTER 2025-04-26 08:46 | Day surgery (SDC) | payer OTHER, SELFPAY ==
[2025-04-23 13:12] VITALS: BP 110/70; PULSE 65; TEMP 36.4; O2SAT 98; BMI 45.2
--- OUTSIDE RECORDS SUMMARY | 2025-04-26 08:48 | XMS_ITS | Encounter Summary ---
Author Organization [facility] Address [address] [facility] [place] [address] Care Team Providers Care Amusement Equipment Operator Name Role Phone Marco Freire MD Unavailable [phone] Marco Freire MD Primary Care Provider Elías Coleman DPM Unavailable Apollo Antonio MD Unavailable Carissa Sim MD Unavailable [phone] Encounter Details Date Type Department Care Team (Late st Contact Info) Description 10/09/2024 Orders Only [facility] [address] [facility] [address] [place] [address] Unallocated, Noms Provider, [address] [place], [place] [phone] Social History Tobacco Use Types Packs/Day Years [...] 05/02/2025 10:45 AM EDT Office Visit [facility] [place] [facility] [address] [place] [address] 06/07/2025 1:30 PM EDT Office Visit [facility] [place] [facility] [address] [place] [phone] Carissa Sim MD [address] [place] [address] documented as of this encounter Procedures Procedure [...] on filedocumented in this encounter Care Teams Amusement Equipment Operator Relationship Specialty Start Date End Date Marco Freire MD [address] [place] [address] PCP - Devoted 09/13/22 Marco Freire MD [address] [place] [phone] PCP - General Internal Medicine 02/11/23 Elías Coleman DPM [address] [facility] [address] [place] [address] Referring Physician Podiatry 04/06/23 Apollo Antonio MD [address] [place] [address] Referring Physician Urology 10/12/23 Carissa Sim MD [address] [place] [address] Referring Physician Dermatology 10/12/23 [facility] Ophthalmology 10/12/23 documented as of this encounter
--- OUTSIDE RECORDS SUMMARY | 2025-04-26 08:48 | XMS_ITS | Encounter Summary ---
Author Organization [facility] Address [address] [facility] [place] [address] Care Team Providers Care Dinkey Brakeman Name Role Phone Marco Freire MD Unavailable [phone] Marco Freire MD Primary Care Provider Elías Coleman DPM Unavailable Apollo Antonio MD Unavailable Carissa Sim MD Unavailable [phone] Encounter Details Date Type Department Care Team (Late st Contact Info) Description 01/26/2025 Orders Only [facility] [address] [facility] [address] [place] [address] Unallocated, Noms Provider, [address] [place], [place] [id number] Social History Tobacco Use Types Packs/Day Years [...] 05/02/2025 10:45 AM EDT Office Visit [facility] [place] [facility] [address] [place] [address] 06/07/2025 1:30 PM EDT Office Visit [facility] [place] [facility] [address] [place] [address] Carissa Sim MD [address] [place] [address] documented as of this encounter Procedures Procedure [...] on filedocumented in this encounter Care Teams Dinkey Brakeman Relationship Specialty Start Date End Date Marco Freire MD [address] [place] [address] PCP - Devoted 09/13/22 Marco Freire MD [address] [place] [address] PCP - General Internal Medicine 02/11/23 Elías Coleman DPM [address] [facility] 5 [place] [address] Referring Physician Podiatry 04/06/23 Apollo Antonio MD [address] [facility] [place] [address] Referring Physician Urology 10/12/23 Carissa Sim MD [address] [place] [address] Referring Physician Dermatology 10/12/23 [facility] Ophthalmology 10/12/23 documented as of this encounter
--- OUTSIDE RECORDS SUMMARY | 2025-04-26 08:48 | XMS_ITS | Encounter Summary ---
Author Organization [facility] Address [address] [facility] [place] [address] Care Team Providers Care Women'S Soccer Coach Name Role Phone Marco Freire MD Unavailable [phone] Marco Freire MD Primary Care Provider [phone] Elías Coleman DPM Unavailable [phone] Apollo Antonio MD Unavailable Carissa Sim MD Unavailable [phone] Encounter Details Date Type Department Care Team (Late st Contact Info) Description 10/27/2023 External Result Encounter [facility] External Department Unsolicited Cele Peace, CATE [address] [facility] [address] [place] [address] Social History Tobacco Use Types Packs/Day Years [...] Description 05/02/2025 10:45 AM EDT Office Visit [facility] [address] [place] [address] 06/07/2025 1:30 PM EDT Office Visit [facility] [address] [place] [address] Carissa Sim MD [address] [place] [address] documented as of this encounter Procedures Procedure [...] Rashmi Peñaloza M.D.10/27/2023 3:48 PM Dictation Location: [place] [address] Transcribed By: [facility] 10/27/23 1548 Dictated By: Rashmi Peñaloza MD 10/27/23 1546 Signed By: <Electronically signed by Rashmi Peñaloza MD in [place]> 10/27/23 1548 Narrative 10/27/2023 3:50 PM EST [facility] [place] [address] Nuclear Medicine Report Signed Patient: Marco Pittman MR#: [id number] : 1950 Acct:[id number] Age/Sex: 72 / M ADM Date: 10/26/23 Loc: Room: Type: [facility] Attending Dr: Cele Peace COMMUNITY PLANNER-C Copies to: CATE Alexandre MD Ordering Provider: [...] Procedure Note Rashmi Peñaloza MD - 10/28/2023 [facility] Main [place] [address] [place] [address] Nuclear Medicine Report Signed Patient: Marco Pittman GMR#: [id number] : 3Acct:[id number] Age/Sex: 72 / MADM Date: 10/26/23 Loc: Room:Type: [facility] Attending Dr: Cele Peace COMMUNITY PLANNER-C Copies to: CATE Alexandre MD Ordering Provider: [...] Rashmi Peñaloza M.D.10/27/2023 3:48 PM Dictation Location: [place] [address] Transcribed By: [facility] 10/27/23 1548 Dictated By: Rashmi Peñaloza MD 10/27/23 1549 Signed By: <Electronically signed by Rashmi Peñaloza MD in OV> 10/27/23 1544 us Cele R Risaliti COMMUNITY PLANNER CV STRESS PROCEDURES Final Re sult documented in this encounter Visit Diagnoses Not on filedocumented in this encounter Care Teams Women'S Soccer Coach Relationship Specialty Start Date End Date Marco Freire MD [address] [place] [address] PCP - Devoted 09/13/22 Marco Freire MD [address] [place] [address] PCP - General Internal Medicine 02/11/23 Elías Coleman DPM [address] [facility] 5 [place] [address] Referring Physician Podiatry 04/06/23 Apollo Antonio MD [address] [place] [address] Referring Physician Urology 10/12/23 Carissa Sim MD [address] [place] [address] Referring Physician Dermatology 10/12/[address] [facility] Ophthalmology 10/12/23 documented as of this encounter
--- OUTSIDE RECORDS SUMMARY | 2025-04-26 08:48 | XMS_ITS | Encounter Summary ---
Author Organization [facility] Address [address] [facility] [place] [address] Care Team Providers Care Data Consultant Name Role Phone Marco Freire MD Unavailable [phone] Marco Freire MD Primary Care Provider Elías Coleman DPM Unavailable [phone] Apollo Antonio MD Unavailable Carissa Sim MD Unavailable [phone] Encounter Details Date Type Department Care Team (Late st Contact Info) Description 10/26/2023 Orders Only [facility] [address] [facility] [address] [place] [address] A, Unknown Practice [address] [place], [place] [address] Social History Tobacco Use Types Packs/Day Years [...] Medicine [address] [place] [phone] 06/07/2025 1:30 PM EDT Office Visit [facility] [place] [facility] [address] [place] [address] Carissa Sim MD [address] [place] [address] documented as of this encounter Procedures Procedure [...] on filedocumented in this encounter Care Teams Data Consultant Relationship Specialty Start Date End Date Marco Freire MD [address] [place] [address] PCP - Devoted 09/13/22 Marco Freire MD [address] [place] [address] PCP - General Internal Medicine 02/11/23 Elías Coleman DPM [address] [facility] 5 [place] [address] Referring Physician Podiatry 04/06/23 Apollo Antonio MD [address] [place] [address] Referring Physician Urology 10/12/23 Carissa Sim MD [address] [facility] [address] [place] [address] Referring Physician Dermatology 10/12/23 [facility] Ophthalmology 10/12/23 documented as of this encounter
--- OUTSIDE RECORDS SUMMARY | 2025-04-26 08:48 | XMS_ITS | Clinical Summary ---
Author Organization [facility] Address [address] [place] [address] Phone Care Team Providers Care Axle Inspector Name Role Phone Unavailable Primary Care Provider [...]
--- OUTSIDE RECORDS SUMMARY | 2025-04-26 08:48 | XMS_ITS | Encounter Summary ---
Author Organization [facility] Address [address] [facility] [place] [address] Care Team Providers Care Supervisor Polishing Name Role Phone Marco Freire MD Unavailable [phone] Marco Freire MD Primary Care Provider Elías Coleman DPM Unavailable Apollo Antonio MD Unavailable Carissa Sim MD Unavailable Encounter Details Date Type Department Care Team (Late st Contact Info) Description 10/10/2024 Orders Only [facility] [address] [facility] [address] [place] [address] Apollo Antonio MD [address] [place] [address] Social History Tobacco Use Types [...] Description 05/02/2025 10:45 AM EDT [facility] [address] [place] [address] 06/07/2025 1:30 PM EDT Office Visit [facility] D[facility]atology [address] [place] [address] Carissa Sim MD [address] [place] [address] documented as of this encounter Procedures Procedure Name Priority Date/Time Associated Diagnosis Comments PSA, TOTAL Routine 06/13/2024 10:56 AM EDT documented in this encounter Results * PSA (06/13/2024 10:56 AM EDT) Blood Venous blood specimen / Unknown us Apollo Antonio MD LAB BLOOD ORDERABLES Final R esult documented in this encounter Visit Diagnoses Not on filedocumented in this encounter Care Teams Supervisor Polishing Relationship Specialty Start Date End Date Marco Freire MD [address] [place] [address] PCP - Devoted 09/13/22 Marco Freire MD [address] [place] [phone] PCP - General Internal Medicine 02/11/23 Elías Coleman DPM [address] [facility] 5 [place] [address] Referring Physician Podiatry 04/06/23 Apollo Antonio MD [address] [place] [address] Referring Physician Urology 10/12/23 Carissa Sim MD [address] [facility] [address] [place] [address] Referring Physician Dermatology 10/12/23 [facility] Ophthalmology 10/12/23 documented as of this encounter
--- OUTSIDE RECORDS SUMMARY | 2025-04-26 08:48 | XMS_ITS | Clinical Summary ---
Author Organization [facility] Address [address] [facility] [place] [address] Care Team Providers Care [employer] Name Role Phone Zaid Freire MD Unavailable [phone] Zaid Freire MD Primary Care Provider [phone] Elías Coleman DPM Unavailable [phone] Apollo nAtonio MD Unavailable [phone] Carissa Sim MD Unavailable [phone] Allergies Active Allergy Reactions Criticality Noted [...] time each day at the same time. 022 Active diphenhydrAMINE-acetami nophen (Tylenol PM) 25-500 MG [...] Active Krill Oil 1000 MG capsuleIndications:Pure hypercholesterolemia Take 1,000 mg by mouth in the [...] (Lexapro) 20 MG tabletIndications:MUKUND (generalized anxiety disorder) Take 1 tablet (20 mg) by mouth [...] Encounters Date Type Department Care Team Description 04/23/2025 Clinisync Result Encounter [facility]OMS External Department Unsolicited Provider, Generic External Data 02/12/2025 11:20 AM EDT Procedure Visit [facility] [address] [place] [phone] Elías Coleman DPM Pain due to onychomycosis of toenails of both feet (Primary Dx) 02/12/2025 Bamboo flowsheet [facility] [address] [place] [address] Elías Coleman DPM 02/07/2025 Clinisync Result Encounter NOMS External Department Unsolicited Provider, Generic External Data 02/07/2025 Clinisync Result Encounter NOMS External Department Unsolicited Provider, Generic External Data 01/26/2025 Orders Only [facility] [address] [place] [phone] Unallocated, Noms MD Adwoa from Last 3 Months Immunizations Immunization Administration [...] Medicine [address] [place] [address] 06/07/2025 1:30 PM EDT Office Visit [facility] [address] [place] [phone] Carissa Sim MD [address] [place] [address] Health Maintenance Due Date Last Done Comments CT Colonography 1950 FIT-DNA 1950 FIT 1950 FOBT 1950 Sigmoidoscopy 1950 Influenza Vaccine (#1) 2025 5, 10/12/2023, 09/29/2022, Additional history exists Medicare Annual Wellness (AWV) 10/30/2025 0 10/30/2024, 09/29/2022, 09/29/2022 Colonoscopy 02/25/2031 02/25/2021, 02/26/2020 Colorectal Cancer Screening 02/25/2031 Pneumococcal Vaccine: 65+ Years Completed 3 Procedures Procedure Name Priority Date/Time Associated Diagnosis Comments VITAMIN D 25 HYDROXY TOTAL Routine 04/25/2025 9:44 AM EDT Vitamin D deficiency LIPID PANEL Routine 04/25/2025 9:44 AM EDT Mixed hyperlipidemia HEMOGLOBIN A1C WITH EAG Routine 04/25/2025 9:44 AM EDT Prediabetes BASIC METABOLIC PANEL Routine 04/25/2025 9:44 AM EDT Prediabetes CBC (INCLUDES DIFF/PLT) Routine 04/25/2025 9:44 AM EDT Macrocytosis [facility] APTT Routine 04/23/2025 1:00 PM EDT [facility] PROTHROMBIN TIME INR W/O COUM Routine 04/23/2025 1:00 PM EDT ALL BASIC METABOLIC PANEL Routine 04/23/2025 1:00 PM EDT ALL CBC WITH AUTO DIFF Routine 04/23/2025 1:00 PM EDT ALL BASIC METABOLIC PANEL Routine 02/07/2025 9:50 AM EDT [facility] PROTHROMBIN TIME INR W/O COUM Routine 02/07/2025 9:50 AM EDT [facility] APTT Routine 02/07/2025 9:50 AM EDT ALL CBC WITH AUTO DIFF Routine 02/07/2025 9:50 AM EDT ECG 12-LEAD 02/07/2025 9:47 AM EDT XR ABDOMEN 1 VIEW Routine 01/25/2025 11: 32 AM EDT PSA, TOTAL Routine 01/25/2025 10:26 AM EDT COLONOSCOPY Routine 02/25/2021 12:00 PM EDT from Last 3 Months or Most Recently Relevant to Health Maintenance Results * (ABNORMAL) Hemoglobin a1c with eag (04/25/2025 9:44 AM EDT) HgbA1C 5.7(H) 4.8 - 5.6 % [facility] Comment: Prediabetes: 5.7 - 6.4 Diabetes: >6.4 Glycemic control for adults with diabetes: <7.0 Est Avg Gluc eAG 117 mg/dL [facility] Blood Venous blood specimen / Unknown 04/25/2025 9:44 AM EDT 04/25/2025 Narrative [facility] - 04/26/2025 7:06 AM EDT Performed at: [address] [place] [id number] Manager [employer]: Sergio Hernandez PhD, Phone: [phone] [facility] BLOOD ORDERABLES Final Re sult [facility] * Vitamin D 25 hydroxy Total (04/25/2025 9:44 AM EDT) Vitamin D, 25-Hydroxy 81.3 30.0 - 100.0 ng/mL [facility] Comment: Vitamin D deficiency has been defined by the Barron of Medicine and an Endocrine Society practice guideline as a level of serum 25-OH vitamin D less than 20 ng/mL (1,2). The Endocrine Society went on to further define vitamin D insufficiency as a level between 21 and 29 ng/mL (2). 1. IOM (Barron of Medicine). 2010. Dietary reference intakes for calcium and D. [place]: The National Academies Press. 2. Wes MF, Charlette HIDALGO, Terry BANKS, et al. Evaluation, treatment, and prevention of vitamin D deficiency: an Endocrine Society clinical practice guideline. JCEM. 2010; 96(7):1911-30. Blood Venous blood specimen / Unknown 04/25/2025 9:44 AM EDT 04/25/2025 Narrative [facility] - 04/26/2025 7:06 AM EDT Performed at: 01 - [facility] [id number] Manager [employer]: Sergio Hernandez PhD, Phone: [phone] [employer] [facility] BLOOD ORDERABLES Final Re sult [facility] * (ABNORMAL) CBC and differential (04/25/2025 9:44 AM EDT) WBC 7.5 3.4 - 10.8 x10E3/uL [facility] RBC 4.43 4.14 - 5.80 x10E6/uL [facility] Hgb 14.6 13.0 - 17.7 g/dL [facility] Hct 43.2 37.5 - 51.0 % [facility] MCV 98(H) 79 - 97 fL [facility] MCH 33.0 26.6 - 33.0 pg [facility] MCHC 33.8 31.5 - 35.7 g/dL [facility] RDW 12.4 11.6 - 15.4 % [facility] Platelets 231 150 - 450 x10E3/uL [facility] Neutrophils 74 Not Estab. % [facility] Lymphs 16 Not Estab. % [facility] Monocytes 6 Not Estab. % [facility] Eos 3 Not Estab. % [facility] Basos 1 Not Estab. % [facility] Neutrophils Abs 5.5 1.4 - 7.0 x10E3/uL [facility] Lymphs Abs 1.2 0.7 - 3.1 x10E3/uL [facility] MonocytesAbs 0.5 0.1 - 0.9 x10E3/uL [facility] Eos Abs 0.2 0.0 - 0.4 x10E3/uL [facility] Baso Abs 0.1 0.0 - 0.2 x10E3/uL [facility] Immature Granulocytes 0 Not Estab. % [facility] Immature Grans Abs 0.0 0.0 - 0.1 x10E3/uL [facility] Blood Venous blood specimen / Unknown 04/25/2025 9:44 AM EDT 04/25/2025 Narrative [facility] - 04/26/2025 7:06 AM EDT Performed at: [address] [id number] Manager [employer]: Sergio Hernandez PhD, Phone: [phone] us [employer] [facility] BLOOD ORDERABLES Final Re sult [facility] * (ABNORMAL) Lipid panel (04/25/2025 9:44 AM EDT) [facility] Cholesterol, Total 180 100 - 199 mg/dL [facility] Triglycerides 223(H) 0 - 149 mg/dL [facility] HDL Cholesterol 25(L) >39 mg/dL [facility] VLDL Cholesterol Kris 39 5 - 40 mg/dL [facility] LDL Chol Calc (NIH) 116(H) 0 - 99 mg/dL [facility] Blood Venous blood specimen / Unknown 04/25/2025 9:44 AM EDT 04/25/2025 Narrative [facility] - 04/26/2025 7:06 AM EDT Performed at: 01 - [address] [id number] Manager [employer]: Sergio Hernandez PhD, Phone: [phone] [employer] [facility] BLOOD ORDERABLES Final Re sult Performing Organization Address City/[facility]/ZIP Co de Phone Number [facility] * (ABNORMAL) Basic metabolic panel (04/25/2025 9:44 AM EDT) Glucose 105(H) 70 - 99 mg/dL [facility] BUN 23 8 - 27 mg/dL [facility] Creat 1.21 0.76 - 1.27 mg/dL [facility] EGFR 64 >59 mL/min/1.7 3 [facility] BUN/Creat Ratio 19 10 - 24 [facility] Sodium 140 134 - 144 mmol/L [facility] Potassium 4.2 3.5 - 5.2 mmol/L [facility] Chloride 104 96 - 106 mmol/L [facility] Carbon Dioxide 19(L) 20 - 29 mmol/L [facility] Calcium 9.3 8.6 - 10.2 mg/dL [facility] Blood Venous blood specimen / Unknown 04/25/2025 9:44 AM EDT 04/25/2025 Narrative [facility] - 04/26/2025 7:06 AM EDT Performed at: 01 - [address] [id number] Manager [employer]: Sergio Hernandez PhD, Phone: [phone] [employer] [facility] BLOOD ORDERABLES Final Re sult Performing Organization Address City/[facility] Co de Phone Number [facility] * (ABNORMAL) [facility] PROTHROMBIN TIME INR W/O COUM (04/23/2025 1:00 PM EDT) Only the most recent of2 resultswithin the time period is included. PROTHROMBIN TIME 11.7(H) 9.0 - 11.6 sec TBH TBH INR 1.12 TBH Comment: DESIRED INR: 2.0-3.0 CONDITIONS NOT LISTED BELOW 2.5-3.5 FOR PROSTHETIC HEART VALVE REPLACEMENT 2.5-3.5 RECURRENT THROMBOSIS 04/23/2025 1:00 PM EDT 04/23/2025 1:02 PM EDT Narrative [facility] - 04/23/2025 1:30 PM EDT Generic External Data Provider [facility] F inal Result Performing Organization Address [facility] de Phone Number [facility] * [facility] APTT (04/23/2025 1:00 PM EDT) Only the most recent of2 resultswithin the time period is included. PARTIAL THROMBOPLASTIN TIME 28.9 22.3 - 36.2 sec TB 04/23/2025 1:00 PM EDT 04/23/2025 1:02 PM EDT [facility] - 04/23/2025 1:30 PM EDT Generic External Data Provider CLINISYNC F inal Result Performing Organization Address [facility] de Phone Number [facility] * (ABNORMAL) ALL CBC WITH AUTO DIFF (04/23/2025 1:00 PM EDT) Only the most recent of2 resultswithin the time period is included. TB WBC 7.6 4.0 - 11.0 10 3/uL TBH TB RBC 4.42(L) 4.70 - 6.10 10 6/uL TBH TB HGB 14.8 14.0 - 18.0 g/dL TB TB HCT 41.5(L) 42.0 - 54.0 % TBH TBH MCV 93.9 80.0 - 94.0 fL TBH TB MCH 33.5 25.9 - 34.0 pg TBH TB MCHC 35.7(H) 29.9 - 35.2 g/dL TBH TB RDW 12.7 11.0 - 15.0 % TBH TBH PLT 216 150 - 450 10 3/uL TBH TBH MPV 9.5 9.5 - 13.5 fL TBH NEUTROPHILS PERCENT AUTO 69.3 43.0 - 75.0 % TBH LYMPHOCYTES PERCENT AUTO 17.7(L) 20.5 - 60.0 % TBH MONOCYTES PERCENT AUTO 9.1 1.7 - 12.0 % TBH TBH EO % 2.8 0.9 - 7.0 % TBH BASOPHILS PERCENT AUTO 0.8 0.2 - 2.0 % TBH IMMATURE GRANULOCYTES PCT AUTO 0.3 0.0 - 0.5 % TBH NEUTROPHILS ABSOLUTE AUTO 5.3 1.4 - 6.5 10 3/uL TBH LYMPHOCYTES ABSOLUTE AUTO 1.4 1.2 - 3.8 10 3/uL TBH MONOCYTES ABSOLUTE AUTO 0.7 0.3 - 0.8 10 3/uL TBH TBH EO # 0.2 0.0 - 0.7 10 3/uL TBH BASOPHILS ABSOLUTE AUTO 0.1 0.0 - 0.1 10 3/uL TBH IMMATURE GRANULOCYTES ABS AUTO 0.02 0.00 - 0.03 10 3/uL TBH 04/23/2025 1:00 PM EDT 04/23/2025 1:02 PM EDT Narrative [facility] - 04/23/2025 1:20 PM EDT us Generic External Data Provider [facility] F inal Result [facility] * (ABNORMAL) ALL BASIC METABOLIC PANEL (04/23/2025 1:00 PM EDT) Only the most recent of2 resultswithin the time period is included. SODIUM 139 136 - 145 mmol/L TBH POTASSIUM 4.1 3.5 - 5.1 mmol/L TBH CHLORIDE 103 98 - 107 mmol/L TBH CARBON DIOXIDE 26.5 21.0 - 32.0 mmol/L TBH ANION GAP 13.6 TBH GLUCOSE 104 74 - 106 mg/dL TBH BLOOD UREA NITROGEN 21.0(H) 7.0 - 18.0 mg/dL TBH CREATININE 1.10 0.70 - 1.30 mg/dL TBH TBH EGFR-AF CAMEROONIAN >60 >=60 mL/min/1.7 3m 2 TBH TBH EGFR-NON AF CAMEROONIAN >60 >=60 mL/min/1.7 3m 2 TBH BUN CREATININE RATIO 19.1 TBH CALCIUM 9.2 8.5 - 10.1 mg/dL [facility]H 04/23/2025 1:00 PM EDT 04/23/2025 1:02 PM EDT Narrative [facility] - 04/23/2025 1:30 PM EDT us Generic External Data Provider [facility]NC F inal Result [facility] * ECG 12-LEAD (02/07/2025 9:47 AM EDT) Anatomical Region Laterality Modality Other 02/07/2025 9:47 AM EDT Narrative 02/07/2025 6:04 [place] [address] Electrocardiograph Report Signed Patient: ZAID PITTMAN MR#: [id number] : 1950 Acct:[id number] Age/Sex: 74 / M ADM Date: 02/07/25 Loc: [facility] Attending Dr: Apollo Antonio M.D. Ordering Physician: Apollo Antonio M.D. Date of Service: 02/07/25 Procedure(s): ECG 12 lead Accession Number(s): [id number] cc: [facility] Test Date: 2025-02-07 Pat Name: ZAID PITTMAN Department: Room: - Gender: Male Certified Drug Counselor: : 1950 Requested By: APOLLO ANTONIO Order Number: [id number] Reading MD: JANICE KIRKLAND M.D. Measurements Intervals [place] Rate: 64 P: 52 NV: 238 QRS: 22 QRSD: 90 T: 35 QT: 402 QTc: 415 Interpretive Statements SINUS RHYTHM WITH FIRST DEGREE AV BLOCK Compared to ECG 05/11/2022 08:41:20 No significant changes Electronically Signed On 02-07-2025 18:04:21 EDT by JANICE KIRKLAND M.D. Dictated By: JANICE KIRKLAND Signed By: 02/07/251803 DD/ 6 TD/TT: Solution Maker: Procedure Note Radiology, Radiologist, - 02/07/[address] [address] Electrocardiograph Report Signed Patient: ZAID PITTMAN GMR#: [id number] : 1950cct:[id number] Age/Sex: 74 / MADM Date: 02/07/25 Loc: PST Attending Dr: Apollo Antonio M.D. Ordering Physician: Apollo Antonio M.D. Date of Service: 02/07/25 Procedure(s): ECG 12 lead Accession Number(s): [id number] cc: [facility] Test Date: 2025-02-07 Pat Name: ZAID PITTMAN Department: Room: - Gender: Male Certified Drug Counselor: : 1950 Requested By: APOLLO ANTONIO Order Number: [id number] Reading MD: JANICE KIRKLAND M.D. Measurements Intervals [place] Rate: 64 P: 52 NV: 238 QRS: 22 QRSD: 90 T: 35 QT: 402 QTc: 415 Interpretive Statements SINUS RHYTHM WITH FIRST DEGREE AV BLOCK Compared to ECG 05/11/2022 08:41:20 No significant changes Electronically Signed On 02-07-2025 18:04:21 EDT by JANICE KIRKLAND M.D. Dictated By: JANICE KIRKLAND Signed By:02/07/251803 DD/ TD/TT: Solution Maker: us Generic External Data Provider CLINISYNC IMAGING Final Result * XR abdomen 1 view (01/25/2025 11:32 AM EDT) Anatomical Region Laterality Modality Abdomen Radiographic Nelda ging us Apollo Antonio MD IMG XR PROCEDURES Final Result * PSA (01/25/2025 10:26 AM EDT) Blood Venous blood specimen / Unknown us Noms Provider Unallocated LAB BLOOD ORDERABLE S Final Result * Colonoscopy (02/25/2021 12:00 PM EDT) Anatomical Region Laterality Modality Endoscopy 02/25/2021 12:0 0 PM EDT Narrative 03/03/2021 12:00 PM EDT PERFORMED AT [facility] LOCATION:[id number] Rectal Polyp Removed Procedure Note CONVERSION, GENERIC - 01/27/2023 PERFORMED AT [facility] LOCATION:[id number] Rectal Polyp Removed Zaid Freire MD ENDOSCOPY PROCEDURE ORDERABLES Final Result from Last 3 Months or Most Recently Relevant to Health Maintenance Insurance [employer] Care Teams [employer] Teacher Relationship Specialty Start Date End Date Zaid Freire MD [address] [facility] [address] [place] [address] PCP - [employer] 09/13/22 Zaid Freire MD [address] [place] [phone] PCP - General Internal Medicine 02/11/23 Elías Coleman DPM [address] [facility] [address] [place] [id number] Referring Physician Podiatry 04/06/23 Apollo Antonio MD [address] [place] [address] Referring Physician Urology 10/12/23 Carissa Sim MD [address] [place] [address] Referring Physician Dermatology 10/12/23 [facility] Ophthalmology 10/12/23
--- OUTSIDE RECORDS SUMMARY | 2025-04-26 08:48 | XMS_ITS | Encounter Summary ---
Author Organization [facility] Address [address] [facility] [place] [address] Care Team Providers Care Director Of Labor Relations Name Role Phone Marco Freire MD Unavailable [phone] Marco Freire MD Primary Care Provider [phone] Elías Coleman DPM Unavailable [phone] Apollo Antonio MD Unavailable [phone] Carissa Sim MD Unavailable [phone] Encounter Details Date Type Department Care Team (Late st Contact Info) Description 04/23/2025 Clinisync Result Encounter NOMS External [...] Medicine [address] [place] [address] 06/07/2025 1:30 PM EDT Office Visit [facility]LEX[facility]DRA [facility] [address] [place] [address] Carissa Sim MD [address] [place] [address] documented as of this encounter Procedures Procedure Name Priority Date/Time Associated Diagnosis Comments [facility] PROTHROMBIN TIME INR W/O COUM Routine 04/23/2025 1:00 PM EDT [facility] APTT Routine 04/23/2025 1:00 PM EDT ALL CBC WITH AUTO DIFF Routine 04/23/2025 1:00 PM EDT ALL BASIC METABOLIC PANEL Routine 04/23/2025 1:00 PM EDT documented in this encounter Results * [facility] APTT (04/23/2025 1:00 PM EDT) PARTIAL THROMBOPLASTIN TIME 28.9 22.3 - 36.2 sec [facility] 04/23/2025 1:00 PM EDT 04/23/2025 1:02 PM EDT Narrative CLINISYNC - 04/23/2025 1:30 PM EDT Generic External Data Provider WALT zhang Result Performing Organization Address [facility] de Phone Number [facility] * (ABNORMAL) [facility] PROTHROMBIN TIME INR W/O COUM (04/23/2025 1:00 PM EDT) PROTHROMBIN TIME 11.7(H) 9.0 - 11.6 sec TB TB INR 1.12 TB Comment: DESIRED INR: 2.0-3.0 CONDITIONS NOT LISTED BELOW 2.5-3.5 FOR PROSTHETIC HEART VALVE REPLACEMENT 2.5-3.5 RECURRENT THROMBOSIS 04/23/2025 1:00 PM EDT 04/23/2025 1:02 PM EDT Narrative [facility] - 04/23/2025 1:30 PM EDT Generic External Data Provider MARIANNENC Ricki zhang Result Performing Organization Address [facility] de Phone Number [facility] * (ABNORMAL) ALL BASIC METABOLIC PANEL (04/23/2025 1:00 PM EDT) SODIUM 139 136 - 145 mmol/L TBH POTASSIUM 4.1 3.5 - 5.1 mmol/L TBH CHLORIDE 103 98 - 107 mmol/L TBH CARBON DIOXIDE 26.5 21.0 - 32.0 mmol/L TBH ANION GAP 13.6 TBH GLUCOSE 104 74 - 106 mg/dL TBH BLOOD UREA NITROGEN 21.0(H) 7.0 - 18.0 mg/dL TBH CREATININE 1.10 0.70 - 1.30 mg/dL TBH TBH EGFR-AF [place] >60 >=60 mL/min/1.7 3m 2 TBH TBH EGFR-NON AF [place] >60 >=60 mL/min/1.7 3m 2 TBH BUN CREATININE RATIO 19.1 TBH CALCIUM 9.2 8.5 - 10.1 mg/dL [facility] 04/23/2025 1:00 PM EDT 04/23/2025 1:02 PM EDT Narrative WALT - 04/23/2025 1:30 PM EDT us Generic External Data Provider ORIONCARINGWEN Ricki leatha Result [facility] * (ABNORMAL) ALL CBC WITH AUTO DIFF (04/23/2025 1:00 PM EDT) [facility] TB WBC 7.6 4.0 - 11.0 10 3/uL TBH TBH RBC 4.42(L) 4.70 - 6.10 10 6/uL TBH TBH HGB 14.8 14.0 - 18.0 g/dL TBH TBH HCT 41.5(L) 42.0 - 54.0 % TBH TBH MCV 93.9 80.0 - 94.0 fL TBH TBH MCH 33.5 25.9 - 34.0 pg TBH TBH MCHC 35.7(H) 29.9 - 35.2 g/dL TBH TBH RDW 12.7 11.0 - 15.0 % TBH [...] External Data Provider CLINISYNC F inal Result [facility] TB documented in this encounter Visit Diagnoses Not on filedocumented in this encounter Care Teams Director Of Labor Relations Relationship Specialty Start Date End Date Marco Freire MD [address] [place] [address] PCP - [employer] 09/13/22 Marco Freire MD [address] [place] [address] PCP - General Internal Medicine 02/11/23 Elías Coleman DPM [address] [facility] [place] [address] [place] [address] Referring Physician Podiatry 04/06/23 Apollo Antonio MD [address] [facility] [place] [address] Referring Physician Urology 10/12/23 Carissa Sim MD [address] [place] [address] Referring Physician Dermatology 10/12/23 [facility] Ophthalmology 10/12/23 documented as of this encounter
[2025-04-26 08:51] VITALS: BMI 45.1
[2025-04-26 09:17] VITALS: BP 121/62; PULSE 72; TEMP 36.1; O2SAT 97
[2025-04-26] MEDS: GENTAMICIN SULFATE 120 MG in 0.9 % SODIUM CHLORIDE 100 ML 206 MG IV (10:09)
[2025-04-26] MEDS: CEFAZOLIN SODIUM 1 GM/50 ML D5W PREMIX IV (10:34)
[2025-04-26] MEDS: LIDOCAINE 2% JELLY 10 ML UR (11:03)
[2025-04-26 11:15] VITALS: BP 130/58; PULSE 62; TEMP 36.4; O2SAT 94
--- NOTE | 2025-04-26 11:17 | PM.URSON ---
Urology Surgery Operative Note Operative Note Procedure Date: 04/26/25 Time Out Performed: yes Pre-op Diagnosis: 1. Elevated PSA. 2. Prostate lesion by MRI Post-op Diagnosis: same as pre-op Procedures performed: 1. Transrectal MRI prostate fusion biopsies Anesthesia: MAC and local Primary Surgeon: Apollo Antonio Complications: None Estimated blood loss (mL): 10 Findings: No hypoechoic areas Specimens: 1. 5 cores from the area of interest sent separately. 2. 6 mapped out cores from the left side and 6 mapped out cores from the right side Drains: None Indications for Procedures: This gentleman has an elevated PSA up to 5 and a area of interest lesion on prostate MRI. He now presents for transrectal prostate MRI fusion biopsies. He has signed an informed consent after risks were explained. Some of these risks include bleeding, infection, urosepsis and anesthesia to name a few Detailed description of Procedure: The patient was kept on the [facility] bed and brought into the operating room. He was placed in the left lateral decubitus position. Timeout was done by all parties in the room. We all agreed upon the patient's identification and the planned procedures for this patient. MAC anesthesia was then administered. We then swabbed his rectum with Betadine soaked stick sponges x 2. We then passed 2% lidocaine gel per rectum. The [employer] ultrasound probe was then passed per rectum. Segmentation was then done so as to fuse the MRI images onto live ultrasound. We then were able to identify the area of interest and get this lined up. We then took 5 separate biopsy cores from the area of interest and these were sent separately labeled area of interest. We then did our mapped out biopsies starting on the left side going from the base towards the apex. 6 cores were obtained from the left side. 6 cores were also obtained from the right side. The probe was then removed. He was then transferred to PACU in stable condition.
[2025-04-26 11:30] VITALS: BP 130/58; PULSE 66; O2SAT 93
[2025-04-26 11:58] VITALS: BP 112/50; PULSE 67; O2SAT 96
--- NOTE | 2025-04-26 11:59 | PC.NURSE ---
Denies urge to void
[2025-04-26 12:34] VITALS: BP 110/59; PULSE 67; O2SAT 96
--- NOTE | 2025-04-26 12:50 | PC.NURSE ---
Up to bathroom and voids duncan colored urine without clots
== END 2025-04-26 12:53 | disposition home or self-care (01) ==
LOC: SURGOUT 08:46
PROVIDERS: Family Provider Internal Medicine; PCP Internal Medicine; Visit Provider Urology
PROC: (CPT 902; principal; 2025-04-26 10:00)
DX: C61 Malignant neoplasm of prostate (principal); R97.20 Elevated prostate specific antigen [PSA]; N42.9 Disorder of prostate, unspecified; F41.9 Anxiety disorder, unspecified; N40.0 Benign prostatic hyperplasia without lower urinary tract symptoms; N42.31 Prostatic intraepithelial neoplasia; Z87.442 Personal history of urinary calculi; Z96.649 Presence of unspecified artificial hip joint; G47.33 Obstructive sleep apnea (adult) (pediatric); M54.16 Radiculopathy, lumbar region; M47.12 Other spondylosis with myelopathy, cervical region; M19.90 Unspecified osteoarthritis, unspecified site
CPT/HCPCS: 55700; 36415; J0690; J1100; J1580; J2704